=== PATIENT | female | born 1930 | race Asian ===

== ENCOUNTER 2018-10-17 02:33 | Inpatient (IN) | payer MEDICARE, OTHER ==
[~2018-10-17] VITALS: Ht 154.9 cm; Wt 43.6 kg
[2018-10-17] VITALS (7 sets, daily range): BP systolic 107–180; BP diastolic 64–91
--- NOTE | 2018-10-17 02:33 | NUR ---
ED Nurse Note: PT BIBA R26 FROM [facility], PT ON SCENE BS=23, 375mL D50 GIVEN, 2MG NARCAN BY MEDIC ON SCENE. IV ACCESS ESTABLISHED. BLOOD URINE MRSA VRE CRE SWAB COLLECTED; SENT DOWN TO LAB.
--- NOTE | 2018-10-17 02:44 | NUR ---
ED Nurse Note: CALLED [facility] REGARDING PT'S CHART, ACCORDING TO THE CHARGE NURSE, WILL SEND THE MEDICAL RECORDS VIA FAX.
--- NOTE | 2018-10-17 02:46 | Emergency Room Report ---
History of Present Illness General Chief Complaint: Altered Level of Consciousness Source: Medical Record, EMS, Caregiver Present Illness HPI This is an 87-year-old Telugu female coming from [facility] with chief complaint of altered mental status. Per EMS they were called because her blood sugar was low. She has decreased mentation. Blood glucose was 24. She was given an amp of D50. It went up to 130s. She still is confused. Per EMS, this afternoon they went to [facility] for the same complaint. Supposedly glucose improve and and transport was declined. She was placed on a D5 normal saline drip at 20 cc an hour. Unable to get any other history from this patient. No reported fever chills. No reported cough or congestion. At baseline patient is confused. She was living by herself until recently. A week ago she was admitted to [facility] for a fall and confusion. CT was negative. Patient was sent to the [facility] recently. Allergies: Coded Allergies: No Known Allergies (Unverified , 10/17/18) Patient History Past Medical History: see triage record, old chart reviewed, HTN Past Surgical History: other Pertinent Family History: none Social History: Denies: smoking Now: No Immunizations: other Reviewed Nursing Documentation: PMH: Agreed; PSxH: Agreed Nursing Documentation-PMH Past Medical History: No History, Except For Hx Hypertension: Yes Review of Systems All Other Systems: limited - Secondary to condition. Physical Exam Vital Signs Date Time Temp Pulse Resp B/P (MAP) Pulse Ox O2 Delivery O2 Flow Rate FiO2 10/17/18 02:29 98.8 72 12 118/77 (91) 98 Room Air Vitals unremarkable Sp02 EP Interpretation: reviewed, normal General Appearance: Stupor Head: normocephalic, atraumatic Eyes: bilateral eye PERRL, bilateral eye EOMI ENT: hearing grossly normal, normal pharynx Neck: full range of motion, supple, no meningismus Respiratory: chest non-tender, lungs clear, normal breath sounds Cardiovascular #1: regular rate, rhythm, no murmur Gastrointestinal: normal bowel sounds, non tender, no mass, no organomegaly, no bruit, non-distended Musculoskeletal: back normal Neurologic: other - withdraws to painful stimuli Psychiatric: mood/affect normal Medical Decision Making Diagnostic Impression: Primary Impression: Encephalopathy Additional Impressions: Hypoglycemia Altered level of consciousness ER Course Patient with acute encephalopathy is. This may be secondary to dehydration. No evidence of any bleed or CVA on the CT scan. X-ray is unremarkable. Urine negative. Patient more alert after IV fluid. I discussed the case with Dr. Cavazos who will admit. EKG Diagnostic Results Rate: normal Rhythm: NSR ST Segments: no acute changes Rhythm Strip Diag. Results EP Interpretation: yes Rate: 80 Rhythm: NSR, no PVC's, no ectopy Chest X-Ray Diagnostic Results Chest X-Ray Diagnostic Results : Chest X-Ray Ordered: Yes # of Views/Limited/Complete: 1 View Indication: Other EP Interpretation: Yes Interpretation: no consolidation, no effusion, no pneumothorax, no acute cardiopulmonary disease Impression: No acute disease Electronically Signed by: Andrew Ritchie MD CT/MRI/US Diagnostic Results CT/MRI/US Diagnostic Results : Imaging Test Ordered: CT head Impression Per radiologist negative. Last Vital Signs Date Time Temp Pulse Resp B/P (MAP) Pulse Ox O2 Delivery O2 Flow Rate FiO2 10/17/18 02:29 98.8 72 12 118/77 (91) 98 Room Air Status: improved Disposition: ADMITTED INPATIENT Condition: Serious Andrew Ritchie MD Oct 17, 2018 02:46
[2018-10-17] MEDS ORDERED: CLONIDINE0.1 MG PO (03:05)
[2018-10-17] MEDS ORDERED: CLONIDINE0.1 MG GT (03:05)
[2018-10-17] MEDS ORDERED: NORVASC10 MG ORAL (03:05)
[2018-10-17] MEDS ORDERED: MULTIVITAMINS1 EAC8 ORAL (03:05)
[2018-10-17] MEDS ORDERED: MOBIC7.5 MG ORAL (03:05)
[2018-10-17] MEDS ORDERED: BENICAR40 MG ORAL (03:05)
[2018-10-17] MEDS ORDERED: NEURONTIN100 MG ORAL (03:05)
[2018-10-17] MEDS ORDERED: SYNTHROID25 MCG ORAL (03:05)
[2018-10-17] MEDS ORDERED: ACETAMINOPHEN325 M1 ORAL (03:05)
[2018-10-17] MEDS ORDERED: BACLOFEN10 MG ORAL (03:05)
[2018-10-17] MEDS ORDERED: ARICEPT5 MG ORAL (03:05)
[2018-10-17] MEDS ORDERED: DOCUSATE SODIU100 MG ORAL (03:05)
[2018-10-17] MEDS ORDERED: OMEPRAZOLE20 M2 ORAL (03:05)
[2018-10-17] MEDS ORDERED: NITROSTAT0.4 M2 SL (03:05)
[2018-10-17] MEDS ORDERED: MAALOX MAXIMUM355 M1 PO (03:05)
[2018-10-17] MEDS ORDERED: PRO-STAT LIQUID30 ML ORAL (03:05)
--- NOTE | 2018-10-17 03:08 | NUR ---
ED Nurse Note: PT DOWN TO IMAGING
[2018-10-17 03:11] LABS: APPEARANCE,URINE CLEAR; BILIRUBIN, URINE NEGATIVE (NEGATIVE); GLUCOSE, URINE (UA) NEGATIVE (NEGATIVE); KETONES,URINE NEGATIVE (NEGATIVE); LEUKOCYTE ESTERASE ,URINE NEGATIVE (NEGATIVE); NITRITE,URINE NEGATIVE (NEGATIVE); PH,URINE 5 (4.5-8.0); PROTEIN,URINE NEGATIVE (NEGATIVE); UROBILINOGEN,URINE NORMAL MG/DL (0.0-1.0)
[2018-10-17 03:16] LABS: COLOR,URINE PALE YELLOW
[2018-10-17 03:17] LABS: BASOPHILS % (AUTO) 0.5 % (0.0-2.0); EOSINOPHILS % (AUTO) 1.3 % (0.0-3.0); HEMATOCRIT 33.9 % (37.0-47.0); HEMOGLOBIN 11.1 G/DL (12.0-16.0); LYMPHOCYTES % (AUTO) 13.6 % (20.0-45.0); MEAN CORPUSCULAR VOLUME 105 FL (80-99); MONOCYTES % (AUTO) 9.2 % (1.0-10.0); NEUTROPHILS % (AUTO) 75.4 % (45.0-75.0); PLATELET COUNT 440 K/UL (150-450); RED BLOOD COUNT 3.24 M/UL (4.20-5.40); RED CELL DISTRIBUTION WIDTH 11.3 % (11.6-14.8); WHITE BLOOD COUNT 9.8 K/UL (4.8-10.8)
[2018-10-17 03:21] LABS: ANION GAP 7 mmol/L (5-15); BLOOD UREA NITROGEN 37 mg/dL (7-18); CALCIUM 8.3 MG/DL (8.5-10.1); CARBON DIOXIDE 26 MMOL/L (21-32); CHLORIDE 100 MMOL/L (98-107); CREATININE 0.9 MG/DL (0.55-1.30); POTASSIUM 5.3 MMOL/L (3.5-5.1); SODIUM 133 MMOL/L (136-145)
[2018-10-17 03:23] LABS: INR 0.9 (0.9-1.1)
[2018-10-17 03:26] LABS: ALANINE AMINOTRANSFERASE 63 U/L (12-78); ALBUMIN 2.3 G/DL (3.4-5.0); ALBUMIN/GLOBULIN RATIO 0.6 (1.0-2.7); ALKALINE PHOSPHATASE 81 U/L (46-116); ASPARTATE AMINO TRANSFERASE 69 U/L (15-37); BILIRUBIN,TOTAL < 0.1 MG/DL (0.2-1.0)
--- NOTE | 2018-10-17 03:30 | NUR ---
ED Nurse Note: PT BACK FROM CT. UPON REASSESSMENT, REDNESS ON RIGHT UPPER BACK NOTED OTHERWISE SKIN INTACT. WOUND CARE PHOTO TAKEN AND UPLOADED. SON AT BEDSIDE.
--- NOTE | 2018-10-17 03:47 | Diagnostic Imaging Report ---
Indication: Headache Technique: Contiguous 5 mm thick transaxial imaging of the head obtained in a Siemens Sensation [address] scanner. Soft tissue and bone windows generated. Automatic Exposure Control was utilized. Total Dose length Product (DLP): 1344.[address] Dose Index Volume (CTDIvol): 70.38 mGy Comparison: none Findings: There is mild prominence of the ventricles, basal cisterns, and cerebral sulci consistent with atrophy. Mild, nonspecific, white matter hypoattenuation is noted throughout the brain consistent with chronic small vessel disease. There is no midline shift, edema, acute hemorrhage, mass effect, or abnormal extra-axial fluid collections. Bones are unremarkable. Impression: No acute intracranial bleed, mass effect or edema. Mild atrophy of the brain. Nonspecific white matter hypoattenuation probably due to chronic small vessel disease. [facility] has communicated the preliminary results to the Emergency Department. Their findings are largely concordant with this report. The CT scanner at [facility] is accredited by the [employer] and the scans are performed using dose optimization techniques as appropriate to a performed exam including Automatic Exposure control.
[2018-10-17] MEDS ORDERED: D5 1/2NS 1,000 ML IV SCH (04:45)
--- NOTE | 2018-10-17 04:45 | NUR ---
TRANSFER TO FLOOR: Patient transferred to [facility] 208-1 as ordered, per MD ISABEL . Report given to JOSEPH PICKARD. PATIENT IN STABLE CONDITION. ACCOMPANIED BY FAMILY MEMBER. BELONGINGS LIST COMPLETED WITH RECEIVING RN; NO BELONGINGS. ENDORSED REDNESS ON UPPER RIGHT BACK.
--- NOTE | 2018-10-17 04:50 | NUR ---
NURSE NOTES: Received patient from JOSEPH Bryant, patient sleeping, not responsive to name, she doesn't open her eyes but localizes pain. IV sites on L hand 20G and R hand 18G, asymptomatic, intact, patent, F/C draining to gravity, patent, bed low and locked, call light within reach, will continue to monitor and reassess.
--- NOTE | 2018-10-17 07:30 | NUR ---
HAND-OFF: Report given to JOSEPH Urias, patient in stable condition, plan of care endorsed.
[2018-10-17] MEDS ORDERED: D5NS 1,000 ML IV SCH (08:00)
--- NOTE | 2018-10-17 08:00 | NUR ---
NURSE NOTES: Per Dr. Cavazos, D5 NS at 100ml/hr, MRI brain without contrast, Accu check q6h, no further order given at this time. Order noted, entered, carried out. Will continue to monitor.
--- NOTE | 2018-10-17 08:01 | NUR ---
NURSE NOTES: Received report from JOSEPH Gallegos. Patient in bed resting, no active s/s cardiac, respiratory distress noticed at this time. Patient on room air, AOx0-1, snoring. IV on left hand 20G and right hand 18G, asymptomatic, patent, intact. Oshea Catheter draining well to gravity. Bed in lowest position, side rails upx2, call light within reach. Will continue to monitor.
[2018-10-17] MEDS: NovoLOG Insulin Flexpen SUBQ SCH ×3 (11:30→20:42)
[2018-10-17] MEDS ORDERED: Dextrose 10% 1,000 ML IV SCH (11:30)
--- NOTE | 2018-10-17 11:30 | NUR ---
NURSE NOTES: BS checked, critically low x2, lab called for STAT glucose, Dr. Cavazos made aware and D [address] Cavazos give D 50 again, D10 at 100ml/h. Order noted, entered, carried out.
--- NOTE | 2018-10-17 11:31 | NUR ---
NURSE NOTES: BS rechecked after D 50 x2, BS 196. Will continue to monitor.
--- NOTE | 2018-10-17 12:00 | NUR ---
NURSE NOTES: Per Grand-son, on 10/06, patient was able to ambulate and fell , admitted to [facility]. Discharge from [facility] on 10/12 to [facility] rehab. 10/15 from [facility] blood sugar low, decrease LOC, after dextrose, BS and LOC back to baseline, on 10/16 BS and LOC decreased again and admitted to [facility].
--- NOTE | 2018-10-17 12:35 | Diagnostic Imaging Report ---
Indication: Dyspnea Comparison: None A single view chest radiograph was obtained. Findings: No definite infiltrate or pulmonary vascular congestion identified. The heart is normal size. The aorta is mildly enlarged consistent with atherosclerotic vascular disease. The bones are osteopenic. Impression: No acute disease
--- NOTE | 2018-10-17 12:58 | NUR ---
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 Mild atrophy of brain. Nonspecific white matter hypoattenuation. CXR: The aorta is mildly enlarged consistent with atherosclerotic vascular disease. The bones are osteopenic. IS: 2mg Narcan given by EMS NS 1000ml Admitted to Telemetry Telemetry status DCP: Pending Hospital Stay
--- NOTE | 2018-10-17 13:00 | NUR ---
NURSE NOTES: Patient schedule for MRI brain without contrast due to ALOC. Patient went down to MRI, family member at the bedside, was asked if patient has pacemaker or metal related material on body, per family member, denies any metal device on patient. Patient off unit for MRI and was told step down stair to take out denture. When got to MRI, three teeth of artificial teeth, a part of denture , already been dangling and has risk of choking, took it out and placed in a bin. When patient back to room, the family member, sister, stated the teeth are not the denture, not made to remove it. Family member stated will need to take it to the dentist to fix it. A three piece of teeth returned to family member.
[2018-10-17] MEDS: Dextrose 10%/0.9% SOD CHL 1,000 ML IV SCH (13:08)
[2018-10-17] MEDS: Cefepime HCl 1 GM in D5W 55 ML IVPB SCH (13:08)
[2018-10-17 13:16] LABS: HEMATOCRIT 37.5 % (37.0-47.0); MEAN CORPUSCULAR VOLUME 106 FL (80-99); PLATELET COUNT 315 K/UL (150-450); RED BLOOD COUNT 3.54 M/UL (4.20-5.40); RED CELL DISTRIBUTION WIDTH 11.1 % (11.6-14.8); WHITE BLOOD COUNT 11.1 K/UL (4.8-10.8)
--- NOTE | 2018-10-17 13:46 | Diagnostic Imaging Report ---
Indication: Dyspnea Comparison: 10/17/18 at 03: 30 A single view chest radiograph was obtained. Findings: 12:05 Study is limited by rotation. There is no change. Lungs remain clear. IMPRESSION: No change from the earlier film
[2018-10-17 13:53] LABS: ALANINE AMINOTRANSFERASE 49 U/L (12-78); ALBUMIN 2.1 G/DL (3.4-5.0); ALBUMIN/GLOBULIN RATIO 0.5 (1.0-2.7); ALKALINE PHOSPHATASE 73 U/L (46-116); ANION GAP 4 mmol/L (5-15); ASPARTATE AMINO TRANSFERASE 50 U/L (15-37); BILIRUBIN,TOTAL 0.3 MG/DL (0.2-1.0); BLOOD UREA NITROGEN 27 mg/dL (7-18); CALCIUM 8.2 MG/DL (8.5-10.1); CARBON DIOXIDE 28 MMOL/L (21-32); CHLORIDE 102 MMOL/L (98-107); CREATININE 0.8 MG/DL (0.55-1.30); POTASSIUM 5.4 MMOL/L (3.5-5.1); SODIUM 134 MMOL/L (136-145)
[2018-10-17] MEDS ORDERED: Vancomycin 1gm/D5W 275ml IVPB SCH ×2 (16:00)
--- NOTE | 2018-10-17 16:00 | NUR ---
NURSE NOTES: Paged Dr. Cavazos for diet, DVT prophylaxis order. Awaiting for callback.
--- NOTE | 2018-10-17 16:05 | Diagnostic Imaging Report ---
Indication: Altered level of consciousness Technique: The head was imaged in a 1.5 Jeannie magnet. Sequences obtained include sagittal and axial T1 FLAIR, axial T2 fast spin echo with fat saturation, axial T2 FLAIR, diffusion and ADC map. Comparison: None Findings: There is mild prominence of the sulci, ventricles, and basal cisterns consistent with atrophy. Mild, nonspecific T2 hyperintensity noted within white matter. This may be due to chronic small vessel disease. There is no restricted diffusion. Alvarez-white differentiation is normal. There is no mass effect, midline shift, edema, or hemorrhage. There are no abnormal extra-axial or intra-axial fluid collections. The corpus callosum and sella are unremarkable. The brainstem and cerebellum are unremarkable. Bone marrow signal within the visualized osseous structures appears age appropriate and unremarkable otherwise. Impression: No acute intracranial findings. Mild atrophy and evidence of chronic small vessel disease involving white matter tracts.
--- NOTE | 2018-10-17 18:31 | NUR ---
NURSE NOTES: Dr. Cavazos made aware of no DVT, diet order. Per Dr. Cavazos, patient non responsive at this time, no order needed for DVT, try regular pureed if patient tolerated. Dr. Cavazos made aware of most recent glucose 94, K level 5.3. No order given at this time, per Dr. Cavazos patient has IV fluid, no order given at this time.
--- NOTE | 2018-10-17 19:05 | NUR ---
HAND-OFF: Report given to JOSEPH Wood.
--- NOTE | 2018-10-17 19:29 | NUR ---
NURSE NOTES: Pt received from JOSEPH Urias alert and oriented x0, does not reply back but mumbles incoherently in response. IV sites asymptomatic and patent on L hand 20 g and R hand 18g running D10NS at 75 as ordered. Oshea catheter patent and draining to clear and yellow urine. Bed in lowest position, call light and belongings within reach.
[2018-10-18] VITALS: BP 109/54
--- NOTE | 2018-10-18 03:00 | Consultation ---
DATE OF CONSULTATION: 10/17/2018 CARDIOLOGY CONSULTATION CONSULTING PHYSICIAN: Roque Cavazos M.D. REQUESTING PHYSICIAN: Marc Rosas M.D. REASON FOR CONSULTATION: Hypotension and hypoglycemia with altered mentation. HISTORY OF PRESENT ILLNESS: This is an 87-year-old Luxembourgish female. She resides at a long term facility. She was recently admitted there after a short stay at [facility]. She apparently had a fall at home about 10 days ago. She was transferred to [facility]. There, workup was undertaken, no definitive etiology for the fall was ascertained and the patient apparently did not have any fractures requiring any surgical intervention. Early this evening, she became withdrawn, lethargic, and relatively hypotensive with severe hypoglycemia. She also had been eating poorly and has been increasingly withdrawn and lethargic late the prior evening. The patient was referred to the emergency room where she was severely hypoglycemic with a blood glucose of 24. When the patient was confused at baseline, her family members report she is usually alert and conversive appropriately and prior to her fall was ambulatory and lives at home. In the emergency room, a workup was undertaken that included a CAT scan of the brain revealing no acute pathology. PAST MEDICAL HISTORY: Hypotension, cardiovascular disease, cerebrovascular disease with dementia, degenerative disk disease, and osteoarthritis. ALLERGIES: None. MEDICATIONS: Reviewed and reconciled. SOCIAL HISTORY: Negative for smoking, alcohol, or substance abuse. FAMILY HISTORY: Noncontributory. REVIEW OF SYSTEMS: Unobtainable from the patient however review of records and discussion with family members revealed pertinent data that has been outlined above. Otherwise all systems are negative. PHYSICAL EXAMINATION: GENERAL: Withdrawn, lethargic. VITAL SIGNS: Blood pressure 118/77 earlier, now 180/91, heart rate in the 80s, respiratory rate 18, and she is afebrile. HEENT: Temporal wasting. Dry mucous membranes. LUNGS: Clear. CARDIAC: Regular. Normal S1, S2 with no murmur. ABDOMEN: Soft. EXTREMITIES: No edema. LABORATORY AND DIAGNOSTIC DATA: Sodium 133, potassium 5.3, bicarbonate 26, BUN 37, creatinine 0.9. Glucose has been ranging from to 29. Lactic acid normal. Troponin negative. Albumin 3.3. White count 9.8 and hemoglobin 11.1. Urinalysis had 0 to 2 red cells and no white cells. Chest x-ray with no acute process. MRI of the brain today revealed no acute findings and atrophy with diffuse white matter disease. IMPRESSION: 1. Hypoglycemia with mild hypovolemia and dehydration. 2. Hypotension with labile blood pressure due to metabolic derangement. 3. Metabolic encephalopathy. 4. Possible sepsis although presently no definitive source is known. PLAN: 1. Volume support with D10. 2. Panculture and empiric antimicrobials. 3. DVT and stress ulcer prophylaxis. 4. Metabolic profile. 5. Cardiac monitoring. Roque Cavazos M.D. DR: SUZY JOB#: [id number] CC:
[2018-10-18] MEDS: Dextrose 10%/0.9% SOD CHL 1,000 ML IV SCH ×2 (03:12→17:16)
[2018-10-18 04:00] VITALS: BP 105/57
[2018-10-18] MEDS: NovoLOG Insulin Flexpen SUBQ SCH ×4 (06:30→21:00)
--- NOTE | 2018-10-18 07:26 | NUR ---
NURSE NOTES: Received report from Israel RUIZ. Pt in bed awake and confused, unable to make needs known and eye open spontaneously. On room air and no signs of distress noted. IV site in Left hand 20G running with D10 NS @75ml/hr and Right hand 18G SL intact and asymptomatic. Bed in lowest position and locked. Bilateral side rails up for safety. No c/o pain noted. Will continue to plan of care.
--- NOTE | 2018-10-18 07:27 | NUR ---
HAND-OFF: Report given to JOSEPH Mathew. No acute s/s of distress noted. Plan of care endorsed.
[2018-10-18 07:30] LABS: BASOPHILS % (AUTO) 0.9 % (0.0-2.0); EOSINOPHILS % (AUTO) 1.9 % (0.0-3.0); HEMOGLOBIN 10.7 G/DL (12.0-16.0); LYMPHOCYTES % (AUTO) 17.6 % (20.0-45.0); MEAN CORPUSCULAR VOLUME 107 FL (80-99); MONOCYTES % (AUTO) 9.8 % (1.0-10.0); NEUTROPHILS % (AUTO) 69.7 % (45.0-75.0); PLATELET COUNT 448 K/UL (150-450); WHITE BLOOD COUNT 7.5 K/UL (4.8-10.8)
[2018-10-18 07:43] LABS: ALANINE AMINOTRANSFERASE 38 U/L (12-78); ALBUMIN 1.9 G/DL (3.4-5.0); ALBUMIN/GLOBULIN RATIO 0.5 (1.0-2.7); ALKALINE PHOSPHATASE 65 U/L (46-116); ANION GAP 5 mmol/L (5-15); ASPARTATE AMINO TRANSFERASE 35 U/L (15-37); BILIRUBIN,TOTAL 0.2 MG/DL (0.2-1.0); BLOOD UREA NITROGEN 15 mg/dL (7-18); CALCIUM 8.5 MG/DL (8.5-10.1); CARBON DIOXIDE 28 MMOL/L (21-32); CHLORIDE 106 MMOL/L (98-107); CREATININE 0.7 MG/DL (0.55-1.30); POTASSIUM 4.4 MMOL/L (3.5-5.1); SODIUM 139 MMOL/L (136-145)
[2018-10-18 08:00] VITALS: BP 109/56
[2018-10-18] MEDS: Cefepime HCl 1 GM in D5W 55 ML IVPB SCH (12:37)
--- NOTE | 2018-10-18 15:24 | NUR ---
SWALLOW / SPEECH THERAPY NOTE: SWALLOW CONSULT: SWALLOW SCREEN AND CHART REVIEW, WILL ASSESS FULLY TOMORROW. PER RN, MIN, NO OVERT S/S OF ASPIRATION WITH THIN LIQUIDS AND PUREED (CRUSHED MEDS WITH APPLESAUCE) BUT HAS SILENT ASP RISK DUE TO NEW HEAD TRAUMA FROM FALL (MORE CONFUSED PER RN) AND H/O DEMENTIA. [facility]PED VERSUS PUREED ALSO NOTED AND THIN LIQUIDS. NOW ON PUREED AND THIN LIQUIDS AND HAS POOR INTAKE. PLAN: CONTINUE WITH PUREED BUT DOWNGRADE TO NECTAR THICK LIQUIDS FOR NOW UNTIL SWALLOW EVAL AND/OR MOD BARIUM SWALLOW STUDY TOMORROW 1 TO 1 FEEDER AND USE GENERAL ASP PRECAUTIONS. CALORIE COUNT AND DIET TYPE PER RD SEND ENSURE ENLIVE OR PER RD IF POOR INTAKE D/W RN AND PATIENT'S GRANDDAUGHTER, RASHMI
[2018-10-18 16:00] VITALS: BP 131/74
[2018-10-18] MEDS: Vancomycin 750mg/NS 275ml IVPB SCH ×2 (17:16)
--- NOTE | 2018-10-18 19:30 | NUR ---
HAND-OFF: Report given to Agustín RUIZ. Pt remains stable.
--- NOTE | 2018-10-18 19:31 | NUR ---
NURSE NOTES: Got report from Min RN. Pt in stable condition. Denies any pain. No s/s of distress or discomfort noted. Pt resting in bed comfortably. Bed in low and locked position, call light within reach, bedside table within reach. Continue to monitor.
[2018-10-18 20:00] VITALS: BP 141/84
[2018-10-18] MEDS: Heparin 5000 units/ml inj SUBQ SCH (20:49)
--- NOTE | 2018-10-18 22:00 | History and Physical Report ---
DATE OF ADMISSION: 10/17/2018 CHIEF COMPLAINT: Hypoglycemia, altered mental status. HISTORY OF PRESENT ILLNESS: The patient is an 87-year-old female. She currently resides at a long term facility. She was transferred from the long term facility with complaints of hypoglycemia and altered mental status. On evaluation in the emergency room, the patient was noted to be confused and hypoglycemic. She was started on IV hydration. Family is currently at the bedside. They are unaware of any prior history of diabetes. They are unaware of any prior history of hypoglycemic episodes. Currently, the patient is awake and most recent blood sugars have been stable. Family members feel that the patient is close to her baseline. There are no reports of any nausea or vomiting. No diarrhea. PAST MEDICAL HISTORY: Significant for history of hypotension, history of falls, history of osteoarthritis, and dementia. PAST SURGICAL HISTORY: Unknown. CURRENT MEDICATIONS: Reconciled and reviewed. ALLERGIES: None. FAMILY HISTORY: None. SOCIAL HISTORY: There is no known history of tobacco, ethanol, or drugs. REVIEW OF SYSTEMS: GENERAL: No fever or chills. HEENT: No headaches. CARDIOPULMONARY: No chest pain or shortness of breath. GASTROINTESTINAL: No nausea or vomiting. GENITOURINARY: No urgency or frequency. MUSCULOSKELETAL: No joint pain or swelling. NEUROLOGIC: No evidence of seizures. PHYSICAL EXAMINATION: VITAL SIGNS: Temperature 97.3, pulse 77, respirations 20, and blood pressure 109/56. GENERAL: The patient is well developed, no apparent distress. She is awake and alert, but somewhat withdrawn. NECK: Supple. HEART: Regular rate and rhythm. LUNGS: Clear. ABDOMEN: Soft, nontender, and nondistended. EXTREMITIES: Without clubbing, cyanosis, or edema. LABORATORY DATA: White count 9, hemoglobin 11, hematocrit 33, platelets of 440. Sodium 134, potassium 5.4, glucose 29, vitamin B12 of 108. Cortisol was 11. ASSESSMENT: This is a 87-year-old female with a history of atherosclerotic cardiovascular disease, dementia, admitted with complaints of hypoglycemia and hypotension of unclear etiology. PLAN: 1. IV hydration. 2. Follow up cultures. 3. Empiric antibiotic therapy for sepsis. 4. Plan of care was discussed with the patient's family at the bedside. Marc Rosas M.D. DR: VALERIA JOB#: [id number] CC:
[2018-10-19] VITALS: BP 115/67
[2018-10-19 04:00] VITALS: BP 127/84
[2018-10-19] MEDS: Dextrose 10%/0.9% SOD CHL 1,000 ML IV SCH ×2 (05:30→15:12)
[2018-10-19] MEDS: NovoLOG Insulin Flexpen SUBQ SCH ×4 (06:22→21:00)
--- NOTE | 2018-10-19 07:30 | NUR ---
HAND-OFF: Report given to Jerilyn RUIZ. Endorsed plan of care.
[2018-10-19 08:00] VITALS: BP 115/67
--- NOTE | 2018-10-19 08:03 | NUR ---
NURSE NOTES: Received patient from Doreen Dela Cruz. Patient sleeping in bed, arousable to touch. No s/s of pain or discomfort. All safety precautions in place. Patient to start calorie today. Will follow.
[2018-10-19] MEDS: Heparin 5000 units/ml inj SUBQ SCH ×2 (09:15→21:44)
--- NOTE | 2018-10-19 10:30 | NUR ---
SWALLOW/SPEECH THERAPY NOTE: REFERRED BY DR DIAZ FOR A SWALLOWING EVALUATION, SEE FULL REPORT TO FOLLOW. DYSPHAGIA RISK FACTORS FOR THIS 87 Y.O. [place]SPE[place] FEMALE: ACUTE ISSUES: ACUTE HEAD TRAUMA / CONTUSION POST FALL AMS, LESS ALERT, CONFUSED, AND HAS SPEECH CHANGES PER FAMILY (NOT TALKING IN SENTENCES NOW), SLOW/POOR INTAKE (? WHEN SHE LAST ATE). LUNGS CLEAR NOW BUT COUGHS WITH ORAL SECRETIONS, NEEDED SUCTION. HYPOGLYCEMIC (NO ISSUES WITH DIABETES BEFORE) H/O DEMENTIA ON ARICEPT PER FAMILY HAD MEMORY PROBLEMS BUT SPOKE IN SENTENCES IN [place], ON DYSPHAGIA DIET AT [facility], CARDIAC, HTN, GERD MEDS. PER FAMILY, PT FELL AND WENT TO ANOTHER HOSPITAL (DID NOT HIT HEAD THEN) AND THEN WENT TO [facility]. NO POLST NOR AD REGARDING TUBE FEEDINGS BUT FAMILY OK WITH TEMPORARY NGT FOR NOW IF NEEDS. [facility] AND THIN LIQU[facility] BUT DOWNGRADED TO PUREED AND THIN LIQUIDS ON 10/16/18. CURRENTLY ON PUREED AND NECTAR THICK LIQUIDS (DOWNGRADED BY BROADBAND INSTALLER FROM THIN UNTIL SWALLOW EVAL) WITH VARIABLY POOR BUT CONSISTENTLY SLOW INTAKE AND HAS PERIODS OF REDUCED ALERTNESS. PER RN PT VERY SLOW IN INTAKE AND STARTS TO FALL ASLEEP.PER RD OK TO LIBERALIZE DIET TO REGULAR NOW. PATIENT NOT CONSISTENTLY ALERT, HAD DENTITION MISSING AND IN POOR CONDITION. NOT VERBALIZING. INITIAL IMPRESSIONS: S/S OF A SIGNIFICANT OROPHARYNGEAL DYSPHAGIA WITH INCREASED TRANSIT TIMES S/S OF ASPIRATION ON SALIVA, PT COUGHING AND VOICE SOUNDS WET, CANNOT COUGH OUT AND MAY HAVE SWALLOWED SINCE RN NOT ABLE TO SUCTION FAST ENOUGH. GIVEN TSP OF NECTAR THICK LIQUID WATER, SLOW TRANSIT 3-4 SECONDS, WEAK HYOLARYNGEAL EXCURSION DURING SWALLOW, AND WEAK COUGH AFTER THE SWALLOW, 2ND DELAYED AND WEAK SWALLOW LATER. HIGH RISK FOR SILENT ASPIRATION GIVEN DEMENTIA AND HEAD TRAUMA DIAGNOSES SLOW AND VARIABLY POOR INTAKE RECOMMENDATIONS: CONSIDER TEMPORARY USE OF NGT 12 MAURITIAN FOR NOW UNTIL PT MORE CONSISTENTLY ALERT AND AFTER COMPLETION OF MODIFIED BARIUM SWALLOW STUDY TO FURTHER ASSESS SWALLOW, DETERMINE SILENT ASPIRATION RISK/ETIOLOGY, AND TO ATTEMPT TRIAL TX TECHNIQUES. SKILLED DYSPHAGIA MANAGEMENT AND TX AND COG-COM EVAL/TX REGARDING SPEECH/LANGUAGE AND COGNITIVE CHANGES (DEMENTIA NOW MILD TBI FROM FALL) EDUCATED/TRAINED RN BUD IN POSTED ASPIRATION AND REFLUX PRECAUTIONS. LEFT MESSAGE WITH DR DIAZ FAMILY RECEPTIVE TO NGT FOR NOW Addendum: 10/19/18 at 1033 by PHU HALLMAN BROADBAND INSTALLER PER RD OK TO LIBERALIZE DIET TO REGULAR NOW AND PT IS UNDERWEIGHT. RD TO PUT IN FORMULA FOR TUBE FEEDINGS. Addendum: 10/19/18 at 1039 by PHU HALLMAN BROADBAND INSTALLER CONSIDER KEEP NPO AND INITIATE TEMPORARY USE OF NGT 12 MAURITIAN FOR NOW UNTIL PT MORE CONSISTENTLY ALERT AND AFTER COMPLETION OF MODIFIED BARIUM SWALLOW STUDY TO FURTHER ASSESS SWALLOW, DETERMINE SILENT ASPIRATION RISK/ETIOLOGY, AND TO ATTEMPT TRIAL TX TECHNIQUES.
--- NOTE | 2018-10-19 11:50 | NUR ---
RD ASSESSMENT & RECOMMENDATIONS SEE CARE ACTIVITY FOR COMPLETE ASSESSMENT DAILY ESTIMATED NEEDS: Needs based on Underweight/ 41kg 30-35 kcals/kg 2854-4215 total kcals 1-1.5 g protein/kg 41-62 g total protein 25-30 mL/kg 6309-6819 total fluid mLs NUTRITION DIAGNOSIS: * Swallowing difficulty R/T dysphgia as evidenced by pt on pureed moist, NTL, CIVIL DESIGN SPECIALIST recommends temporary nonroal feedings at this time. * Increased kcal/prot needs R/T underweight status as evidenced by pt is 90% IBW with BMI of 17.6. * Altered nutrition related lab values R/T diabetes as evidenced by episodes of hypo and hyperglycemia. CURRENT DIET:REGULAR, pureed moist, NTL PO DIET RECOMMENDATIONS: IF SAFE FOR PO -> liberalized REGULAR/ texture per CIVIL DESIGN SPECIALIST + Glucerna TID ENTERAL NUTRITION RECOMMENDATIONS: Glucerna 1.2 @ 50ml/hr x 24 hrs to provide 1200ml, 1440kcal, 72g prot, 966ml free water * If NGT feeding a part of POC and indicated, obtain GI access * Initiate Glucerna 1.2 @ 20ml/hr x 6 hrs, advance 10ml q 4-6 hrs as tolerated to goal rate. * HOB over 30 degrees/ water flush per MD ADDITIONAL RECOMMENDATIONS: * TXR PT TO BED WITH BEDSCALE, OBTAIN CALIBRATED BEDSCALE WT (currently on a bed without bedscale) * Monitor lytes daily w/ TF, replete as needed * Monitor BGs closely- hypoglycemic and hyperglycemic episodes * Monitor POC : NGT feeding vs oral diet * F/up with Jona Count x 72 hrs if pt remains on oral diet * Rec wound eval: coccyx wound photo
[2018-10-19 12:00] VITALS: BP 115/67
[2018-10-19] MEDS: Cefepime HCl 1 GM in D5W 55 ML IVPB SCH (12:14)
--- NOTE | 2018-10-19 14:30 | NUR ---
NURSE NOTES: Received order from Dr. Rosas to insert NGT. Carried out awaiting KUB to be done will follow.
--- NOTE | 2018-10-19 14:31 | General Progress Note ---
Assessment/Plan Problem List: (1) Altered level of consciousness ICD Codes: R40.4 - Transient alteration of awareness SNOMED: 4819103 (2) Hypoglycemia ICD Codes: E16.2 - Hypoglycemia, unspecified SNOMED: 717473790 (3) Encephalopathy ICD Codes: G93.40 - Encephalopathy, unspecified SNOMED: 59673792 Status: stable, not improved Assessment/Plan: cont ivf monitor bs follow up cultures abx eeg d/w family- ok with ngt. GI eval Subjective ROS Limited/Unobtainable: Yes Constitutional: Reports: malaise, weakness HEENT: Reports: no symptoms Cardiovascular: Reports: no symptoms Respiratory: Reports: no symptoms Gastrointestinal/Abdominal: Reports: difficulty swallowing Genitourinary: Reports: no symptoms Neurologic/Psychiatric: Reports: pre-existing deficit Endocrine: Reports: no symptoms Hematologic/Lymphatic: Reports: no symptoms Allergies: Coded Allergies: No Known Allergies (Unverified , 10/17/18) All Systems: reviewed and negative except above Subjective no change. remains poorly responsive and lethargic. failed swallow eval. having difficulty with oral secretions. ct and mri of brain only with chronic dz. BS stable on d10 Objective Last 24 Hour Vital Signs Date Time Temp Pulse Resp B/P (MAP) Pulse Ox O2 Delivery O2 Flow Rate FiO2 10/19/18 12:00 77 10/19/18 12:00 98.2 85 20 115/67 (83) 98 10/19/18 09:00 Room Air 10/19/18 08:00 73 10/19/18 08:00 98.0 75 22 115/67 (83) 97 10/19/18 04:00 77 10/19/18 04:00 98.9 87 16 127/84 (98) 97 10/19/18 00:00 88 10/19/18 00:00 98.3 83 16 115/67 (83) 98 10/18/18 21:00 Room Air 10/18/18 20:00 97.8 100 16 141/84 (103) 99 10/18/18 20:00 96 10/18/18 16:00 98.1 82 20 131/74 (93) 92 10/18/18 16:00 83 Intake and Output 10/18/18 10/19/18 19:00 07:00 Intake Total 120 ml Output Total 500 ml 1300 ml Balance -380 ml -1300 ml Intake Oral 120 ml Output Urine Total 500 ml 1300 ml # Bowel Movements 1 1 Height (Feet): 5 Height (Inches): 1.00 Weight (Pounds): 114 General Appearance: WD/WN, lethargic, confused Neck: supple Cardiovascular: normal rate Respiratory/Chest: chest wall non-tender, lungs clear, normal breath sounds, no respiratory distress, no accessory muscle use Abdomen: normal bowel sounds, non tender, soft, no organomegaly, no mass Edema: no edema noted Arm (L), no edema noted Arm (R), no edema noted Leg (L), no edema noted Leg (R), no edema noted Pedal (L), no edema noted Pedal (R), no edema noted Generalized Neurologic: disoriented, aphasia Marc Rosas MD Oct 19, 2018 14:31
[2018-10-19 16:00] VITALS: BP 135/93
[2018-10-19] MEDS: Vancomycin 750mg/NS 275ml IVPB SCH ×2 (16:46)
--- NOTE | 2018-10-19 17:00 | NUR ---
NURSE NOTES: Summoned to patients room by laboratory technology teacher. Patients NGT out found at patients bed. Family at bedside. Patient agitated towards staff. Dr. Cavazos made aware and order obtained for B/L wrist restraints. Applied following protocol. NGT reinserted. KUB done. awaiting result. will follow.
--- NOTE | 2018-10-19 18:24 | Diagnostic Imaging Report ---
Indication: Post nasogastric tube placement Technique: Supine view of the abdomen Comparison: none Findings: There is a nasogastric tube in good position, tip projected at the level of the gastric body. Bowel gas pattern appears unremarkable. There are degenerative changes of the lumbar spine. Impression: Satisfactory position of nasogastric tube This agrees with the preliminary interpretation provided overnight by [facility] teleradiology service.
[2018-10-19 20:00] VITALS: BP 126/78
--- NOTE | 2018-10-19 20:00 | NUR ---
NURSE NOTES: Pt received from JOSEPH Jean-Baptiste alert and oriented x0 does not answer back when attempted to be oriented but opens eyes simultaneously. IV site found off pt, d/romana and on the floor. NGT found out of pt, on bed. No acute s/s of distress noted. Oshea catheter patent and draining to clear and yellow urine. Pt on bilateral soft wrist restraints, neurovascular status intact, no s/s of swelling or redness. Skin warm to touch, cap refill less than 3 secs. Bed in lowest position, call light and belongings within reach.
--- NOTE | 2018-10-19 20:03 | NUR ---
NURSE NOTES: Informed Dr. Rosas about NGT pulled out. Per Dr. Rosas, pls reinsert NGT and follow up with abd XR to confirm placement. Will carry out orders.
--- NOTE | 2018-10-19 20:11 | NUR ---
NURSE NOTES: JHONATANB resulted. Dr. Rosas made aware. New orders obtained. Will follow.
--- NOTE | 2018-10-19 20:13 | NUR ---
HAND-OFF: Report given to Doreen Wood.PLan of endoresed. Will follow
--- NOTE | 2018-10-19 23:00 | Progress Note ---
DATE: 10/19/2018 SUBJECTIVE: The patient remains withdrawn and lethargic. A single blood culture is positive for Staph aureus, coag-negative. The patient continues to be on high-dose dextrose replacement due to hypoglycemia. OBJECTIVE: VITAL SIGNS: Blood pressure 109/56, pulse 77, and respirations 20. Afebrile. LUNGS: Clear. CARDIAC: Regular. Normal S1, S2. ABDOMEN: Soft. EXTREMITIES: No edema. LABORATORY DATA: White count 7.5 and hemoglobin 10.7. Potassium 4.4, BUN 15, creatinine 0.7. Albumin 1.9. An a.m. cortisol was 11.2. IMPRESSION: 1. Hypoglycemia. 2. Possible sepsis. 3. Severe protein-calorie malnutrition. 4. No signs of adrenal insufficiency. 5. Hypovolemia and dehydration, recovering. 6. Acute on chronic kidney injury, resolving. 7. Cerebrovascular disease with dementia. 8. Metabolic encephalopathy. PLAN: 1. Adjust IV fluids. 2. Empiric antimicrobials. 3. Aspiration precautions. Roque Cavazos M.D. DR: VINAY JOB#: [id number] CC:
--- NOTE | 2018-10-19 23:15 | Progress Note ---
DATE: 10/19/2018 CARDIOLOGY PROGRESS NOTE SUBJECTIVE: The patient remains poorly responsive and lethargic. She failed the swallow evaluation and has difficulty with oral secretions. Her CAT scan and MRI of the brain revealed chronic disease. Blood sugars remained stable on D10. OBJECTIVE: VITAL SIGNS: Blood pressure 131/74, pulse 83, and respirations 20, and afebrile. LUNGS: Clear. CARDIAC: Regular. Normal S1, S2. ABDOMEN: Soft. EXTREMITIES: No edema. No new laboratories. IMPRESSION: 1. Metabolic and toxic encephalopathy. 2. Hypoglycemia. 3. Dysphagia. 4. Severe protein-calorie malnutrition. 5. Cerebrovascular disease with dementia. 6. Rehydrated. 7. Acute renal failure, resolved. 8. Positive blood culture likely a contaminant. PLAN: 1. Continue dextrose hydration. 2. Monitor glucose parameters. 3. Empiric antimicrobials. 4. NG-tube for interim nutrition. 5. She will likely need long-term G-tube. Roque Cavazos M.D. DR: VINAY JOB#: [id number] CC:
[2018-10-20] VITALS: BP 134/78
--- NOTE | 2018-10-20 01:10 | NUR ---
NURSE NOTES: RN inserted 16F NGT through L nares at 55cm. Ordered KUB per Dr. Rosas for confirmation.
--- NOTE | 2018-10-20 02:32 | Diagnostic Imaging Report ---
Indication: Post is gastric tube placement Technique: Supine view of the upper abdomen Comparison: 10/19/2018 Findings: Stable position of nasogastric tube, tip projected at level gastric body, proximal port is not clearly visualized but presumably well below the gastroesophageal junction. Bowel gas pattern remains unremarkable. Impression: Unchanged, over one day, findings as above.
--- NOTE | 2018-10-20 03:45 | NUR ---
NURSE NOTES: Per KUB, NGT distal tip in stomach but recommends advancing NGT 3-5 cm. NGT advanced 5 cm from 55 to 60 cm in L nares.
[2018-10-20 04:00] VITALS: BP 116/60
[2018-10-20] MEDS: Dextrose 10%/0.9% SOD CHL 1,000 ML IV SCH (06:03)
[2018-10-20] MEDS: NovoLOG Insulin Flexpen SUBQ SCH ×3 (06:03→17:13)
[2018-10-20 07:25] LABS: AMMONIA < 10 umol/L (11-32)
[2018-10-20 07:27] LABS: BASOPHILS % (AUTO) 0.9 % (0.0-2.0); EOSINOPHILS % (AUTO) 1.6 % (0.0-3.0); HEMATOCRIT 34.2 % (37.0-47.0); HEMOGLOBIN 11.3 G/DL (12.0-16.0); LYMPHOCYTES % (AUTO) 22.3 % (20.0-45.0); MEAN CORPUSCULAR VOLUME 104 FL (80-99); MONOCYTES % (AUTO) 9.1 % (1.0-10.0); NEUTROPHILS % (AUTO) 66.2 % (45.0-75.0); PLATELET COUNT 513 K/UL (150-450); RED BLOOD COUNT 3.28 M/UL (4.20-5.40); RED CELL DISTRIBUTION WIDTH 10.4 % (11.6-14.8); WHITE BLOOD COUNT 9.2 K/UL (4.8-10.8)
[2018-10-20 07:32] LABS: ALANINE AMINOTRANSFERASE 37 U/L (12-78); ALBUMIN 2.3 G/DL (3.4-5.0); ALBUMIN/GLOBULIN RATIO 0.5 (1.0-2.7); ALKALINE PHOSPHATASE 69 U/L (46-116); ANION GAP 6 mmol/L (5-15); ASPARTATE AMINO TRANSFERASE 27 U/L (15-37); BILIRUBIN,TOTAL 0.5 MG/DL (0.2-1.0); BLOOD UREA NITROGEN 10 mg/dL (7-18); CALCIUM 8.8 MG/DL (8.5-10.1); CARBON DIOXIDE 31 MMOL/L (21-32); CHLORIDE 104 MMOL/L (98-107); CREATININE 0.7 MG/DL (0.55-1.30); POTASSIUM 3.4 MMOL/L (3.5-5.1); SODIUM 141 MMOL/L (136-145)
--- NOTE | 2018-10-20 07:51 | NUR ---
NURSE NOTES: Received report from Israel RUIZ. AOX0 and fatigue in bed and responsive to tactile stimuli. On bilateral soft wrist restraints intact and able to put the two fingers between restraints. No changes of color noted. IV site in RFA 20G running with D10NS @75ml/hr intact and asymptomatic. Bed in its lowest position an locked. Bed side rails upx2 for safety. Oshea cath 16fr patent and intact and noted yellow color urine in drainage line. On room air and no signs of distress or SOB noted. Will continue to plan of care.
--- NOTE | 2018-10-20 07:51 | NUR ---
HAND-OFF: Report given to JOSEPH Mathew. No acute s/s of distress noted. Plan of care endorsed.
[2018-10-20 08:00] VITALS: BP 117/77
[2018-10-20] MEDS: Heparin 5000 units/ml inj SUBQ SCH ×2 (08:53→21:24)
--- NOTE | 2018-10-20 09:51 | General Progress Note ---
Assessment/Plan Status: stable, not improved Assessment/Plan: Assessment - Dementia - hypoglycemia - Delirium - Failed swallow study Recommendations - continue NGT feeds - Elevate HOB - Discussed with family - decision on PEG pending Thank you Edmond Vargas MD Subjective Allergies: Coded Allergies: No Known Allergies (Unverified , 10/17/18) Objective Last 24 Hour Vital Signs Date Time Temp Pulse Resp B/P (MAP) Pulse Ox O2 Delivery O2 Flow Rate FiO2 10/20/18 08:00 97.3 74 18 117/77 (90) 94 10/20/18 04:00 97.9 78 16 116/60 (78) 96 10/20/18 04:00 70 10/20/18 00:00 78 10/20/18 00:00 98.2 73 16 134/78 (96) 98 10/19/18 21:00 Room Air 10/19/18 20:00 98.0 84 20 126/78 (94) 97 10/19/18 20:00 101 10/19/18 16:00 98.1 87 20 135/93 (107) 100 10/19/18 16:00 91 10/19/18 12:00 77 10/19/18 12:00 98.2 85 20 115/67 (83) 98 Intake and Output 10/19/18 10/20/18 19:00 07:00 Intake Total 375 ml Output Total 700 ml 900 ml Balance -700 ml -525 ml IV Total 375 ml Output Urine Total 700 ml 900 ml # Bowel Movements 1 1 Laboratory Tests 10/20/18 05:30: White Blood Count 9.2, Red Blood Count 3.28L, Hemoglobin 11.3L, Hematocrit 34.2L , Mean Corpuscular Volume 104H, Mean Corpuscular Hemoglobin 34.4H, Mean Corpuscular Hemoglobin Concent 33.1, Red Cell Distribution Width 10.4L, Platelet Count 513H, Mean Platelet Volume 4.4L, Neutrophils (%) (Auto) 66.2, Lymphocytes (%) (Auto) 22.3, Monocytes (%) (Auto) 9.1, Eosinophils (%) (Auto) 1.6, Basophils (%) (Auto) 0.9, Sodium Level 141, Potassium Level 3.4L, Chloride Level 104, Carbon Dioxide Level 31, Anion Gap 6, Blood Urea Nitrogen 10, Creatinine 0.7, Estimat Glomerular Filtration Rate , Glucose Level 117H, Calcium Level 8.8, Total Bilirubin 0.5, Aspartate Amino Transf (AST/SGOT) 27, Alanine Aminotransferase (ALT/SGPT) 37, Alkaline Phosphatase 69, Ammonia < 10L, Total Protein 6.5, Albumin 2.3L, Globulin 4.2, Albumin/Globulin Ratio 0.5L Height (Feet): 5 Height (Inches): 1.00 Weight (Pounds): 114 Edmond Vargas MD Oct 20, 2018 09:51
--- NOTE | 2018-10-20 11:07 | NUR ---
ST NOTES: SWALLOW STATUS: PATIENT NOT ALERT FOR PO TRIAL NOR MODIFIED BARIUM SWALLOW STUDY. NGT IN PLACE ([address] RD RECOMMENDED GLUCERNA FEEDINGS. PER RN, PT NOT VERBALIZING IN [place]. STILL RECOVERING FROM HER MILD TBI. SPOKE WITH [id number] AND SON ABOUT NEED FOR NGT NOW AND MOD BARIUM SWALLOW STUDY WHEN READY. D/W DR PERALES REGARDING POSSIBLE NEED FOR LONGER TERM NONORAL FEEDINGS. HE SPOKE WITH FAMILY WHO WILL DISCUSS AGAIN ON WEDNESDAY. PATIENT MAY BE ABLE TO HAVE SOME ORAL GRAT AFTER COMPLETE OF SWALLOW STUDY IP OR OP IF D/C. DO NOT HOLD UP D/C FOR THIS PROCEDURE. GOALS MET FOR STAFF (MIN RN) EDUCATED/TRAINED IN ORAL CARE AND ASP PREC WITH NGT FEEDINGS. PLAN: CONTINUE WITH PLAN OF CARE IN SWALLOW EVAL REPORT.
[2018-10-20 12:00] VITALS: BP 114/69
[2018-10-20] MEDS: Cefepime HCl 1 GM in D5W 55 ML IVPB SCH (12:23)
[2018-10-20 16:00] VITALS: BP 135/66
--- NOTE | 2018-10-20 16:00 | NUR ---
NURSE NOTES: Noted IV line in RFA 20G with able to flush well but pt c/o pain when touched and noted right upper arm swelling. Elevated right arm with pillows and Iced pack applied after IV 20g in RFA removed. Will continue to monitor the swelling in right upper arm.
--- NOTE | 2018-10-20 16:26 | General Progress Note ---
Assessment/Plan Problem List: (1) Altered level of consciousness ICD Codes: R40.4 - Transient alteration of awareness SNOMED: 0554455 (2) Hypoglycemia ICD Codes: E16.2 - Hypoglycemia, unspecified SNOMED: 577988505 (3) Encephalopathy ICD Codes: G93.40 - Encephalopathy, unspecified SNOMED: 76063847 Status: stable, not improved Assessment/Plan: dc ivf ngt feeds monitor bs follow up cultures abx eeg d/w family- ok with ngt. gi eval appreciated may need gt if swallowing does not improve Subjective ROS Limited/Unobtainable: Yes Constitutional: Reports: malaise, weakness HEENT: Reports: no symptoms Cardiovascular: Reports: no symptoms Respiratory: Reports: cough Gastrointestinal/Abdominal: Reports: difficulty swallowing Genitourinary: Reports: no symptoms Neurologic/Psychiatric: Reports: pre-existing deficit Endocrine: Reports: no symptoms Hematologic/Lymphatic: Reports: anemia Allergies: Coded Allergies: No Known Allergies (Unverified , 10/17/18) All Systems: reviewed and negative except above Subjective ngt placed. failed swallow eval. remains withdrawn and confused. Objective Last 24 Hour Vital Signs Date Time Temp Pulse Resp B/P (MAP) Pulse Ox O2 Delivery O2 Flow Rate FiO2 10/20/18 12:00 97.9 82 18 114/69 (84) 97 10/20/18 12:00 83 10/20/18 09:00 Room Air 10/20/18 08:00 68 10/20/18 08:00 97.3 74 18 117/77 (90) 94 10/20/18 04:00 97.9 78 16 116/60 (78) 96 10/20/18 04:00 70 10/20/18 00:00 78 10/20/18 00:00 98.2 73 16 134/78 (96) 98 10/19/18 21:00 Room Air 10/19/18 20:00 98.0 84 20 126/78 (94) 97 10/19/18 20:00 101 Intake and Output 10/19/18 10/20/18 19:00 07:00 Intake Total 470 ml Output Total 700 ml 900 ml Balance -700 ml -430 ml IV Total 450 ml Tube Feeding 20 ml Output Urine Total 700 ml 900 ml # Bowel Movements 1 1 Laboratory Tests 10/20/18 05:30: White Blood Count 9.2, Red Blood Count 3.28L, Hemoglobin 11.3L, Hematocrit 34.2L , Mean Corpuscular Volume 104H, Mean Corpuscular Hemoglobin 34.4H, Mean Corpuscular Hemoglobin Concent 33.1, Red Cell Distribution Width 10.4L, Platelet Count 513H, Mean Platelet Volume 4.4L, Neutrophils (%) (Auto) 66.2, Lymphocytes (%) (Auto) 22.3, Monocytes (%) (Auto) 9.1, Eosinophils (%) (Auto) 1.6, Basophils (%) (Auto) 0.9, Sodium Level 141, Potassium Level 3.4L, Chloride Level 104, Carbon Dioxide Level 31, Anion Gap 6, Blood Urea Nitrogen 10, Creatinine 0.7, Estimat Glomerular Filtration Rate , Glucose Level 117H, Calcium Level 8.8, Total Bilirubin 0.5, Aspartate Amino Transf (AST/SGOT) 27, Alanine Aminotransferase (ALT/SGPT) 37, Alkaline Phosphatase 69, Ammonia < 10L, Total Protein 6.5, Albumin 2.3L, Globulin 4.2, Albumin/Globulin Ratio 0.5L 10/20/18 15:50: Vancomycin Level Trough [Pending] Height (Feet): 5 Height (Inches): 1.00 Weight (Pounds): 114 Objective General Appearance: WD/WN, lethargic, confused Neck: supple Cardiovascular: normal rate Respiratory/Chest: chest wall non-tender, lungs clear, normal breath sounds, no respiratory distress, no accessory muscle use Abdomen: normal bowel sounds, non tender, soft, no organomegaly, no mass Edema: no edema noted Arm (L), no edema noted Arm (R), no edema noted Leg (L), no edema noted Leg (R), no edema noted Pedal (L), no edema noted Pedal (R), no edema noted Generalized Neurologic: disoriented, aphasia Marc Rosas MD Oct 20, 2018 16:26
[2018-10-20] MEDS: Vancomycin 750mg/NS 275ml IVPB SCH ×2 (17:13)
--- NOTE | 2018-10-20 19:20 | NUR ---
HAND-OFF: Report given to Indu RUIZ. Pt remains stable.
--- NOTE | 2018-10-20 19:36 | NUR ---
NURSE NOTES: Received pt from JOSEPH Mathew. Pt asleep. Family at bedside. Bed in lowest position. Call light within reach. Will continue to monitor.
[2018-10-20 20:00] VITALS: BP 135/73
[2018-10-21] VITALS: BP 123/74
--- NOTE | 2018-10-21 00:30 | Electroencephalogram ---
REQUESTING PHYSICIAN: Marc Rosas M.D. READING PHYSICIAN: Silvano Guadalupe M.D. PROCEDURE PERFORMED: Electroencephalogram. HISTORY: This EEG was performed on an 87-year-old lady with a history of altered mental state associated with hypoglycemia. The purpose of this EEG was to evaluate the patient for the degree and type of cerebral dysfunction. TECHNICAL NOTE: This EEG was performed on a Atlas5D Digital Acquisition Unit with electrodes placed on the scalp according to the International 10-20 system. Ilfac-[id number] and vwfjk-lo-[id number] montages were used. The EEG was of technically mediocre quality as double distance electrodes were used throughout the tracing. OBSERVATIONS: In the reportedly awake state, the background activity consisted of 6-7 Hz theta with intermixed delta frequencies. Drowsiness was characterized by slowing of the background in the 4-5 Hz theta and 1.5-2.5 Hz delta range. No definite focal abnormalities or epileptiform discharges were seen. IMPRESSION: This is an abnormal EEG characterized by slowing of the background predominantly in the 6-7 Hz theta range with some intermixed delta frequencies, in the reportedly awake state. COMMENT: This study is consistent with an encephalopathy of a moderate degree. Clinical correlation is recommended. Silvano Guadalupe M.D., M.S.P.H. DR: KRYSTEN JOB#: [id number] MTDD
--- NOTE | 2018-10-21 02:45 | Consultation ---
DATE OF CONSULTATION: 10/20/2018 CHIEF COMPLAINT: I was asked to see this patient by Dr. Roque Cavazos for nutritional support and possible gastrostomy tube placement. HISTORY OF PRESENT ILLNESS: The patient is an unfortunate 87-year-old [place] woman who is from a nursing facility. She has a history of dementia, but also has altered mental status, and delirium. She has been unable to eat by mouth, unable to swallow, therefore, a nasogastric tube had been placed for feeding. I discussed the indications, risks, alternatives, and possible complications of gastrostomy tube placement with the patient's family, and all questions were answered. They want to talk amongst each other before making a final decision. The patient herself is unable to provide any history and all information is only available from the chart. PAST MEDICAL HISTORY: History of dementia, hypertension, history of probable gastroenteritis. PAST SURGICAL HISTORY: None. FAMILY HISTORY: Noncontributory. SOCIAL HISTORY: The patient resides in a shelter and has had no recent history of smoking or drinking. REVIEW OF SYSTEMS: Unobtainable. ALLERGIES: None. PHYSICAL EXAMINATION: GENERAL: A debilitated woman in her room with family at bedside. HEENT: Normocephalic and atraumatic. Sclerae are anicteric. Oropharynx is clear. NECK: Supple. CHEST: Clear to auscultation. CARDIOVASCULAR: Revealed regular rate. ABDOMEN: Soft. Good bowel sounds. EXTREMITIES: No edema. LABORATORY DATA: Noted. ASSESSMENT: This patient has delirium and dementia and is unable to eat at this time. The patient can undergo gastrostomy tube placement for enteral access and nutrition. However, the patient's family wants to discuss amongst themselves. We respect the patient's overall goals and wishes. The nasogastric tube will be continued for now until the decision is made. RECOMMENDATIONS: 1. Continue nasogastric tube feeding. 2. Decision on PEG per family's wishes. 3. Elevate head of bed. 4. Follow laboratory parameters and exam. Thank you for asking me to participate in the care of this patient. Edmond Vargas M.D. DR: Yessi JOB#: [id number] CC: SMITH
[2018-10-21 03:51] VITALS: BP 125/75
[2018-10-21] MEDS: Vancomycin 750mg/NS 275ml IVPB SCH ×4 (04:20→17:25)
[2018-10-21] MEDS: NovoLOG Insulin Flexpen SUBQ SCH ×4 (05:36→17:39)
[2018-10-21 07:10] LABS: EOSINOPHILS % (AUTO) 0.7 % (0.0-3.0); HEMATOCRIT 28.9 % (37.0-47.0); HEMOGLOBIN 9.8 G/DL (12.0-16.0); LYMPHOCYTES % (AUTO) 16.4 % (20.0-45.0); MEAN CORPUSCULAR VOLUME 102 FL (80-99); MONOCYTES % (AUTO) 8.4 % (1.0-10.0); NEUTROPHILS % (AUTO) 73.5 % (45.0-75.0); PLATELET COUNT 501 K/UL (150-450); RED BLOOD COUNT 2.82 M/UL (4.20-5.40); RED CELL DISTRIBUTION WIDTH 10.6 % (11.6-14.8); WHITE BLOOD COUNT 11.3 K/UL (4.8-10.8)
[2018-10-21 07:12] LABS: ALANINE AMINOTRANSFERASE 27 U/L (12-78); ALKALINE PHOSPHATASE 112 U/L (46-116); ANION GAP 4 mmol/L (5-15); ASPARTATE AMINO TRANSFERASE 20 U/L (15-37); BILIRUBIN,TOTAL 0.7 MG/DL (0.2-1.0); BLOOD UREA NITROGEN 17 mg/dL (7-18); CALCIUM 8.2 MG/DL (8.5-10.1); CARBON DIOXIDE 29 MMOL/L (21-32); CHLORIDE 102 MMOL/L (98-107); CREATININE 0.7 MG/DL (0.55-1.30); POTASSIUM 4.2 MMOL/L (3.5-5.1); SODIUM 135 MMOL/L (136-145)
--- NOTE | 2018-10-21 07:15 | NUR ---
HAND-OFF: Report given to JOSEPH Tipton. Pt stable.
[2018-10-21 08:00] VITALS: BP 100/55
[2018-10-21] MEDS ORDERED: NS 275ml ONE (09:06)
[2018-10-21] MEDS: Heparin 5000 units/ml inj SUBQ SCH ×2 (10:17→20:34)
--- NOTE | 2018-10-21 11:21 | NUR ---
RD ASSESSMENT & RECOMMENDATIONS SEE CARE ACTIVITY FOR COMPLETE ASSESSMENT DAILY ESTIMATED NEEDS: Needs based on Underweight/ 41kg 30-35 kcals/kg 8247-9888 total kcals 1-1.5 g protein/kg 41-62 g total protein 25-30 mL/kg 7172-9952 total fluid mLs NUTRITION DIAGNOSIS: * Swallowing difficulty R/T dysphgia as evidenced by pt now NPO, not alert for PO trials nor MBSS per POWERTRAIN DESIGN ENGINEER, s/p NGT insertion, on TF. * Increased kcal/prot needs R/T underweight status as evidenced by pt is 90% IBW with BMI of 17.6. * Altered nutrition related lab values R/T diabetes as evidenced by episodes of hypo and hyperglycemia, now better controlled. CURRENT DIET:NPO CURRENT TF:Glucerna 1.2 @ 50ml/hr x 24 hrs PO DIET RECOMMENDATIONS: IF SAFE FOR PO -> liberalized REGULAR/ texture per POWERTRAIN DESIGN ENGINEER ENTERAL NUTRITION RECOMMENDATIONS: Glucerna 1.2 @ 50ml/hr x 24 hrs to provide 1200ml, 1440kcal, 72g prot, 966ml free water * Maintain current TF * TF @ goal meets all of kcal/prot needs * HOB over 30 degrees/ water flush per MD ADDITIONAL RECOMMENDATIONS: * TXR PT TO BED WITH BEDSCALE, OBTAIN CALIBRATED BEDSCALE WT -> on NGT feeding, underweight, currently on a bed without bedscale * Monitor lytes daily w/ TF, replete as needed -> check phos and mag (mag last checked on 10/18, phos not done) * Monitor POC: TF (possibly PEG pending family decision) vs oral feeding * Monitor for oral diet order: per POWERTRAIN DESIGN ENGINEER, pt not alert for PO trials nor MBSS * Rec wound eval: coccyx wound photo
[2018-10-21 12:00] VITALS: BP 100/57
[2018-10-21] MEDS: Cefepime HCl 1 GM in D5W 55 ML IVPB SCH (12:35)
--- NOTE | 2018-10-21 13:51 | NUR ---
ST NOTE: SWALLOW STATUS: PATIENT VARIABLY ALERT, STILL NOT CONSISTENTLY ALERT FOR MODIFIED BARIUM SWALLOW STUDY NOR FOR PO INTAKE. STAFF AWARE OF ORAL CARE AND ASP PREC WITH NGT FEEDINGS. PLAN: CONTINUE WITH NGT FEEDINGS FOR NOW, CONSIDER LONGER TERM NONORAL FEEDINGS ONLY IF FAMILY IS RECEPTIVE. WILL REASSESS ON WEDNESDAY FOR MOD BARIUM SWALLOW STUDY AND/OR PO TRIALS. D/W DR DIAZ, FAMILY, AND STAFF
[2018-10-21 16:00] VITALS: BP 104/61
--- NOTE | 2018-10-21 19:15 | NUR ---
NURSE NOTES: Received patient awake, lying in semi lopez's position; resting comfortably. A/O x 2-3. Primarly Kazakh speaking. Does not exhibit any signs of pain. No signs of acute cardiorespiratory distress noted. On bilateral wrists restraints for safety. With NGT patent and intact. Glucerna 1.2 running at 50 mls/hr and tolerating well. Checked IV site intact and flushed. No signs of erythema, bleeding or infiltration noted. With conklin catheter draining well to gravity. Bed at lowest position, brakes on, siderails x 3. Call light within reach. Will continue to monitor.
[2018-10-21 20:00] VITALS: BP 108/58
--- NOTE | 2018-10-21 21:08 | General Progress Note ---
Assessment/Plan Status: stable, not improved Assessment/Plan: Assessment - Dementia - hypoglycemia - Delirium - Failed swallow study Recommendations - continue NGT feeds - Elevate HOB - Discussed with family - decision on PEG pending Subjective Allergies: Coded Allergies: No Known Allergies (Unverified , 10/17/18) Subjective Above noted resting comfortably tolerating TF Objective Last 24 Hour Vital Signs Date Time Temp Pulse Resp B/P (MAP) Pulse Ox O2 Delivery O2 Flow Rate FiO2 10/21/18 20:00 98.1 81 18 108/58 (75) 96 10/21/18 16:00 98.2 77 16 104/61 (75) 95 10/21/18 16:00 100 10/21/18 13:42 Room Air 10/21/18 12:00 73 10/21/18 12:00 98.2 82 16 100/57 (71) 97 10/21/18 09:00 Room Air 10/21/18 08:00 97.7 85 16 100/55 (70) 95 10/21/18 08:00 83 10/21/18 04:00 95 10/21/18 03:51 98.8 93 18 125/75 (92) 98 10/21/18 00:00 93 10/21/18 00:00 97.7 100 18 123/74 (90) 95 Intake and Output 10/20/18 10/21/18 19:00 07:00 Intake Total 1508.333 ml Output Total 700 ml 850 ml Balance 808.333 ml -850 ml Free Water 250 ml IV Total 918.333 ml Tube Feeding 340 ml Output Urine Total 700 ml 850 ml # Bowel Movements 1 1 Laboratory Tests 10/21/18 06:35: White Blood Count 11.3H, Red Blood Count 2.82L, Hemoglobin 9.8L, Hematocrit 28.9L, Mean Corpuscular Volume 102H, Mean Corpuscular Hemoglobin 34.8H, Mean Corpuscular Hemoglobin Concent 34.0, Red Cell Distribution Width 10.6L, Platelet Count 501H, Mean Platelet Volume 4.7L, Neutrophils (%) (Auto) 73.5, Lymphocytes (%) (Auto) 16.4L, Monocytes (%) (Auto) 8.4, Eosinophils (%) (Auto) 0.7, Basophils (%) (Auto) 1.0, Sodium Level 135L, Potassium Level 4.2, Chloride Level 102, Carbon Dioxide Level 29, Anion Gap 4L, Blood Urea Nitrogen 17, Creatinine 0.7, Estimat Glomerular Filtration Rate , Glucose Level 111H, Calcium Level 8.2L, Total Bilirubin 0.7, Aspartate Amino Transf (AST/SGOT) 20, Alanine Aminotransferase (ALT/SGPT) 27, Alkaline Phosphatase 112, Total Protein 5.9L, Albumin 2.0L, Globulin 3.9 Height (Feet): 5 Height (Inches): 1.00 Weight (Pounds): 114 Objective Thin woman NCAT supple CTA RRR abd soft no edema OBS Edmond Vargas MD Oct 21, 2018 21:08
[2018-10-22] VITALS (7 sets, daily range): BP systolic 90–139; BP diastolic 50–76
--- NOTE | 2018-10-22 01:56 | NUR ---
NURSE NOTES: Safety maintained throughout the night. No significant change of condition noted. Will continue current plan of care.
--- NOTE | 2018-10-22 04:54 | NUR ---
NURSE NOTES: Called Jessica Tenorio pharmacist, regarding patient's Vancomycin trough level of 16.2. Per pharmacist, OK to give 0500 Vancomycin 750 mg IV dose.
[2018-10-22] MEDS: Vancomycin 750mg/NS 275ml IVPB SCH ×4 (05:12→17:07)
[2018-10-22] MEDS: NovoLOG Insulin Flexpen SUBQ SCH ×4 (05:38→17:19)
--- NOTE | 2018-10-22 07:07 | NUR ---
HAND-OFF: Report given to Celestino/JOSEPH Tipton. Plan of care endorsed.
--- NOTE | 2018-10-22 08:00 | NUR ---
NURSE NOTES: Pt asleep/obtunded in bed, breathing easily on room air, no evidence of SOB. IV access right forearm with NS running at TKO. NG tube in place, verified by auscultation/aspiration, previously verified by XR with Glu 1.2 running at 50 ml/hr, 0 ml residual, given 50 ml free water flush. Bilateral wrist restraints in place, good distal functions both hands, due to pulling NG tube. Oshea cath in place, patent and draining clear yellow urine into collection bag at foot of bed. Bed left in low position, side rails up x 3, exit alarm set and call light left near pt's hand.
--- NOTE | 2018-10-22 08:27 | General Progress Note ---
Assessment/Plan Problem List: (1) Altered level of consciousness ICD Codes: R40.4 - Transient alteration of awareness SNOMED: 0113503 (2) Hypoglycemia ICD Codes: E16.2 - Hypoglycemia, unspecified SNOMED: 562346549 (3) Encephalopathy ICD Codes: G93.40 - Encephalopathy, unspecified SNOMED: 55646294 Status: stable, not improved Assessment/Plan: ngt feeds monitor bs abx eeg- reviewed. no szs gi eval appreciated. family deciding on gt may need gt if swallowing does not improve Subjective ROS Limited/Unobtainable: Yes Constitutional: Reports: malaise, weakness HEENT: Reports: no symptoms Cardiovascular: Reports: no symptoms Respiratory: Reports: no symptoms Gastrointestinal/Abdominal: Reports: difficulty swallowing, poor appetite, poor fluid intake Genitourinary: Reports: no symptoms Neurologic/Psychiatric: Reports: pre-existing deficit Endocrine: Reports: no symptoms Hematologic/Lymphatic: Reports: no symptoms Allergies: Coded Allergies: No Known Allergies (Unverified , 10/17/18) All Systems: reviewed and negative except above Subjective ngt placed. failed swallow eval. remains withdrawn and confused. Objective Last 24 Hour Vital Signs Date Time Temp Pulse Resp B/P (MAP) Pulse Ox O2 Delivery O2 Flow Rate FiO2 10/22/18 04:00 98.3 77 19 139/76 (97) 97 10/22/18 04:00 84 10/22/18 00:00 75 10/22/18 00:00 98.2 75 18 136/74 (94) 96 10/21/18 21:00 Room Air 10/21/18 20:00 98.1 81 18 108/58 (75) 96 10/21/18 20:00 87 10/21/18 16:00 98.2 77 16 104/61 (75) 95 10/21/18 16:00 100 10/21/18 13:42 Room Air 10/21/18 12:00 73 10/21/18 12:00 98.2 82 16 100/57 (71) 97 10/21/18 09:00 Room Air Intake and Output 10/21/18 10/22/18 19:00 07:00 Intake Total 50 ml 915 ml Output Total 800 ml 1250 ml Balance -750 ml -335 ml Free Water 40 ml IV Total 275 ml Tube Feeding 50 ml 600 ml Output Urine Total 800 ml 1250 ml # Bowel Movements 2 1 Laboratory Tests 10/22/18 04:03: Vancomycin Level Trough 16.2H Height (Feet): 5 Height (Inches): 1.00 Weight (Pounds): 114 Objective General Appearance: WD/WN, lethargic, confused Neck: supple Cardiovascular: normal rate Respiratory/Chest: chest wall non-tender, lungs clear, normal breath sounds, no respiratory distress, no accessory muscle use Abdomen: normal bowel sounds, non tender, soft, no organomegaly, no mass Edema: no edema noted Arm (L), no edema noted Arm (R), no edema noted Leg (L), no edema noted Leg (R), no edema noted Pedal (L), no edema noted Pedal (R), no edema noted Generalized Neurologic: disoriented, aphasia Marc Rosas MD Oct 22, 2018 08:27
--- NOTE | 2018-10-22 08:40 | General Progress Note ---
Assessment/Plan Status: stable, not improved Assessment/Plan: Assessment/Plan Status: stable, not improved Assessment/Plan: Assessment - Dementia - hypoglycemia - Delirium - Failed swallow study Recommendations - continue NGT feeds - Elevate HOB - Discussed with family - decision on PEG pending Subjective ROS Limited/Unobtainable: No Allergies: Coded Allergies: No Known Allergies (Unverified , 10/17/18) Objective Last 24 Hour Vital Signs Date Time Temp Pulse Resp B/P (MAP) Pulse Ox O2 Delivery O2 Flow Rate FiO2 10/22/18 08:00 82 10/22/18 04:00 98.3 77 19 139/76 (97) 97 10/22/18 04:00 84 10/22/18 00:00 75 10/22/18 00:00 98.2 75 18 136/74 (94) 96 10/21/18 21:00 Room Air 10/21/18 20:00 98.1 81 18 108/58 (75) 96 10/21/18 20:00 87 10/21/18 16:00 98.2 77 16 104/61 (75) 95 10/21/18 16:00 100 10/21/18 13:42 Room Air 10/21/18 12:00 73 10/21/18 12:00 98.2 82 16 100/57 (71) 97 10/21/18 09:00 Room Air Intake and Output 10/21/18 10/22/18 19:00 07:00 Intake Total 50 ml 915 ml Output Total 800 ml 1250 ml Balance -750 ml -335 ml Free Water 40 ml IV Total 275 ml Tube Feeding 50 ml 600 ml Output Urine Total 800 ml 1250 ml # Bowel Movements 2 1 Laboratory Tests 10/22/18 04:03: Vancomycin Level Trough 16.2H Height (Feet): 5 Height (Inches): 1.00 Weight (Pounds): 114 General Appearance: alert EENT: normal ENT inspection Neck: supple Cardiovascular: normal rate Respiratory/Chest: decreased breath sounds Abdomen: normal bowel sounds, non tender, soft Extremities: non-tender Raji Tolentino MD Oct 22, 2018 08:40
[2018-10-22] MEDS: Heparin 5000 units/ml inj SUBQ SCH ×2 (09:43→21:20)
--- NOTE | 2018-10-22 10:29 | Diagnostic Imaging Report ---
EXAM: XR Chest, 1 View CLINICAL HISTORY: INFECT TECHNIQUE: Frontal view of the chest. COMPARISON: Chest x-rays dated 10/17/18 (incorrectly labeled as 01/14/19) FINDINGS: Lungs: Unremarkable. The lungs appear clear. No focal consolidation. Pleural space: Unremarkable. The costophrenic angles are sharp. No visible pneumothorax. Heart: Unremarkable. No cardiomegaly. Mediastinum: Unremarkable. Bones/joints: Unremarkable. Vasculature: Atherosclerotic calcifications are noted within the aortic arch. Tubes, lines and devices: Telemetry leads overlie the thorax. IMPRESSION: No acute findings.
[2018-10-22] MEDS: Cefepime HCl 1 GM in D5W 55 ML IVPB SCH (11:38)
[2018-10-22] MEDS ORDERED: NS 275ml ONE (17:32)
--- NOTE | 2018-10-22 19:58 | NUR ---
NURSE NOTES: Received pt from JOSEPH Tipton. Pt asleep. Bed in lowest position. restraints on. Oshea intact and draining. Call light within reach. Will continue to monitor.
[2018-10-23] VITALS: BP 112/65
--- NOTE | 2018-10-23 02:28 | NUR ---
NURSE NOTES: Called and left a message with Dr. Rosas regarding lab orders. Awaiting call back.
[2018-10-23 04:00] VITALS: BP 120/66
[2018-10-23] MEDS: Vancomycin 750mg/NS 275ml IVPB SCH ×4 (05:10→17:13)
[2018-10-23] MEDS: NovoLOG Insulin Flexpen SUBQ SCH ×4 (05:18→17:51)
--- NOTE | 2018-10-23 06:08 | General Progress Note ---
Assessment/Plan Status: stable, not improved Assessment/Plan: Assessment/Plan Status: stable, not improved Assessment/Plan: Assessment - Dementia - hypoglycemia - Delirium - Failed swallow study Recommendations - continue NGT feeds - Elevate HOB - Discussed with family - decision on PEG pending Subjective ROS Limited/Unobtainable: No Allergies: Coded Allergies: No Known Allergies (Unverified , 10/17/18) Objective Last 24 Hour Vital Signs Date Time Temp Pulse Resp B/P (MAP) Pulse Ox O2 Delivery O2 Flow Rate FiO2 10/23/18 04:00 70 10/23/18 04:00 98.0 81 18 120/66 (84) 98 10/23/18 00:00 69 10/23/18 00:00 97.7 80 18 112/65 (81) 95 10/22/18 21:00 Room Air 10/22/18 20:00 90 10/22/18 20:00 98.1 84 18 118/64 (82) 98 10/22/18 16:00 99.0 83 18 98/50 (66) 97 10/22/18 16:00 78 10/22/18 12:52 104/58 (73) 10/22/18 12:00 99.0 79 18 90/57 (68) 96 10/22/18 12:00 73 10/22/18 10:35 98.8 10/22/18 09:00 Room Air 10/22/18 08:00 100.4 82 18 129/67 (87) 97 10/22/18 08:00 82 Intake and Output 10/22/18 10/23/18 19:00 07:00 Intake Total 1000 ml Output Total 900 ml Balance 100 ml Free Water 400 ml Tube Feeding 600 ml Output Urine Total 900 ml # Bowel Movements 1 1 Height (Feet): 5 Height (Inches): 1.00 Weight (Pounds): 114 General Appearance: no apparent distress EENT: normal ENT inspection Neck: supple Cardiovascular: normal rate Respiratory/Chest: decreased breath sounds Abdomen: normal bowel sounds, non tender, soft Extremities: non-tender Raji Tolentino MD Oct 23, 2018 06:08
--- NOTE | 2018-10-23 06:45 | NUR ---
HAND-OFF: Report given to JOSEPH Tirado. Pt stable.
--- NOTE | 2018-10-23 07:30 | NUR ---
NURSE NOTES: Pt asleep in bed breathing easily on room air, no evidence of SOB. IV access right hand with NS running at TKO. NG tube in place, verified by auscultation/aspiration, previously verified by XR with Glu 1.2 running at 50 ml/hr, 0 ml residual, given 100 ml free water flush. Bilateral wrist restraints in place, good distal functions both hands, due to pulling NG tube. Oshea cath in place, patent and draining clear yellow urine into collection bag at foot of bed. Bed left in low position, side rails up x 3, exit alarm set and call light left near pt's hand. Addendum: 10/23/18 at 0745 by DORY GILMAN RN Vital signs stable with SR @ 72 on monitor
[2018-10-23 08:00] VITALS: BP 107/50
[2018-10-23] MEDS: Heparin 5000 units/ml inj SUBQ SCH ×2 (08:45→21:00)
--- NOTE | 2018-10-23 10:57 | General Progress Note ---
Assessment/Plan Problem List: (1) Altered level of consciousness ICD Codes: R40.4 - Transient alteration of awareness SNOMED: 2110848 (2) Hypoglycemia ICD Codes: E16.2 - Hypoglycemia, unspecified SNOMED: 997080594 (3) Encephalopathy ICD Codes: G93.40 - Encephalopathy, unspecified SNOMED: 09369268 Status: stable, not improved Assessment/Plan: ngt feeds monitor bs abx eeg- reviewed. no szs gi eval appreciated. family deciding on gt may need gt if swallowing does not improve Subjective ROS Limited/Unobtainable: No Constitutional: Reports: malaise, weakness HEENT: Reports: no symptoms Cardiovascular: Reports: no symptoms Respiratory: Reports: no symptoms Gastrointestinal/Abdominal: Reports: difficulty swallowing Genitourinary: Reports: no symptoms Neurologic/Psychiatric: Reports: no symptoms Endocrine: Reports: no symptoms Hematologic/Lymphatic: Reports: anemia Allergies: Coded Allergies: No Known Allergies (Unverified , 10/17/18) All Systems: reviewed and negative except above Subjective no events. remains withdrawn and confused. still with ngt. tolerating feeds. restrained to keep pt from pulling out ngt Objective Last 24 Hour Vital Signs Date Time Temp Pulse Resp B/P (MAP) Pulse Ox O2 Delivery O2 Flow Rate FiO2 10/23/18 08:05 Room Air 10/23/18 08:00 97.1 72 21 107/50 (69) 97 10/23/18 08:00 72 10/23/18 04:00 70 10/23/18 04:00 98.0 81 18 120/66 (84) 98 10/23/18 00:00 69 10/23/18 00:00 97.7 80 18 112/65 (81) 95 10/22/18 21:00 Room Air 10/22/18 20:00 90 10/22/18 20:00 98.1 84 18 118/64 (82) 98 10/22/18 16:00 99.0 83 18 98/50 (66) 97 10/22/18 16:00 78 10/22/18 12:52 104/58 (73) 10/22/18 12:00 99.0 79 18 90/57 (68) 96 10/22/18 12:00 73 Intake and Output 10/22/18 10/23/18 19:00 07:00 Intake Total 1000 ml Output Total 900 ml 1000 ml Balance 100 ml -1000 ml Free Water 400 ml Tube Feeding 600 ml Output Urine Total 900 ml 1000 ml # Bowel Movements 1 1 Height (Feet): 5 Height (Inches): 1.00 Weight (Pounds): 114 Objective General Appearance: WD/WN, lethargic, confused Neck: supple Cardiovascular: normal rate Respiratory/Chest: chest wall non-tender, lungs clear, normal breath sounds, no respiratory distress, no accessory muscle use Abdomen: normal bowel sounds, non tender, soft, no organomegaly, no mass Edema: no edema noted Arm (L), no edema noted Arm (R), no edema noted Leg (L), no edema noted Leg (R), no edema noted Pedal (L), no edema noted Pedal (R), no edema noted Generalized Neurologic: disoriented, aphasia Marc Rosas MD Oct 23, 2018 10:57
[2018-10-23] MEDS: D5 1/2NS 1,000 ML IV SCH (11:12)
[2018-10-23] MEDS: Cefepime HCl 1 GM in D5W 55 ML IVPB SCH (11:12)
[2018-10-23 11:23] LABS: BASOPHILS % (AUTO) 0.8 % (0.0-2.0); EOSINOPHILS % (AUTO) 1.1 % (0.0-3.0); HEMATOCRIT 30.8 % (37.0-47.0); HEMOGLOBIN 10.2 G/DL (12.0-16.0); LYMPHOCYTES % (AUTO) 17.1 % (20.0-45.0); MEAN CORPUSCULAR VOLUME 102 FL (80-99); MONOCYTES % (AUTO) 7.1 % (1.0-10.0); NEUTROPHILS % (AUTO) 73.9 % (45.0-75.0); PLATELET COUNT 543 K/UL (150-450); RED BLOOD COUNT 3.01 M/UL (4.20-5.40); RED CELL DISTRIBUTION WIDTH 10.8 % (11.6-14.8); WHITE BLOOD COUNT 8.9 K/UL (4.8-10.8)
[2018-10-23 11:39] LABS: ALANINE AMINOTRANSFERASE 21 U/L (12-78); ALBUMIN/GLOBULIN RATIO 0.5 (1.0-2.7); ALKALINE PHOSPHATASE 77 U/L (46-116); ANION GAP 6 mmol/L (5-15); ASPARTATE AMINO TRANSFERASE 17 U/L (15-37); BILIRUBIN,TOTAL 0.3 MG/DL (0.2-1.0); BLOOD UREA NITROGEN 22 mg/dL (7-18); CALCIUM 8.9 MG/DL (8.5-10.1); CARBON DIOXIDE 29 MMOL/L (21-32); CHLORIDE 104 MMOL/L (98-107); CREATININE 0.7 MG/DL (0.55-1.30); POTASSIUM 4.5 MMOL/L (3.5-5.1); SODIUM 139 MMOL/L (136-145)
[2018-10-23 12:00] VITALS: BP 117/83
[2018-10-23 16:00] VITALS: BP 98/57
--- NOTE | 2018-10-23 19:47 | NUR ---
NURSE NOTES: Received pt from JOSEPH Tirado. Pt awake, alert, and talkative. Family at bedside. Bed in lowest position. Call light within reach. IV site intact and patent. Will continue to monitor.
[2018-10-23 20:00] VITALS: BP_SYST 117; BP_SYST 98; BP_DIAS 57; BP_DIAS 66
[2018-10-24] VITALS (10 sets, daily range): BP systolic 106–137; BP diastolic 60–77
[2018-10-24] MEDS: D5 1/2NS 1,000 ML IV SCH ×3 (00:20→18:44)
--- NOTE | 2018-10-24 02:48 | NUR ---
NURSE NOTES: Called and left a message with Dr. Rosas informing him that the pt pulled out her NGtube, but since she is scheduled for PEG placement this morning, I did not attempt to put the tube back in. Will continue to monitor.
[2018-10-24] MEDS: Vancomycin 750mg/NS 275ml IVPB SCH ×4 (05:12→17:55)
[2018-10-24] MEDS: NovoLOG Insulin Flexpen SUBQ SCH ×4 (05:12→18:00)
[2018-10-24] MEDS ORDERED: fentaNYL 100 mcg/2 mL IV PRN (07:00)
[2018-10-24] MEDS ORDERED: Midazolam 2mg/2ml Inj IVP PRN (07:00)
[2018-10-24] MEDS ORDERED: Atropine Inj 1mg/10ml Syr IV PRN (07:00)
[2018-10-24] MEDS ORDERED: DiphenhydrAMINE 50mg/ml Inj IVP PRN (07:00)
--- NOTE | 2018-10-24 07:06 | Anethesia Preoperative Eval ---
Anesthesia Pre-op PMH/ROS General Date of Evaluation: Oct 24, 2018 Time of Evaluation: 07:06 Anesthesiologist: amilcar ASA Score: ASA 4 Mallampati Score Class I : Soft palate, uvula, fauces, pillars visible Class II: Soft palate, uvula, fauces visible Class III: Soft palate, base of uvula visible Class IV: Only hard plate visible Mallampati Classification: Class II Surgeon: maggy Diagnosis: dysphagia Surgical Procedure: egd/peg Anesthesia History: none Social History: smoking - nonsmoker Family History: no anesthesia problems Allergies: Coded Allergies: No Known Allergies (Unverified , 10/17/18) Medications: see eMAR Patient NPO?: Yes Past Medical History Cardiovascular: Reports: HTN, other - hyperlipidemia Neurologic/Psychiatric: Reports: other - acute encephalopathy, aloc Endocrine: Reports: other - hypoglycemia Anesthesia Pre-op Phys. Exam Physician Exam Last Vital Signs Date Time Temp Pulse Resp B/P (MAP) Pulse Ox O2 Delivery O2 Flow Rate FiO2 10/24/18 04:00 98.1 81 17 134/73 (93) 96 10/23/18 21:00 Room Air Constitutional: NAD Neurologic: CN 2-12 intact Cardiovascular: RRR Respiratory: CTA Gastrointestinal: S/NT/ND Airway Exam Mallampati Score: Class II MO: limited Neck: decreased rom of motion to lateral rotation and extension TMD: 2fb ROM: limited Teeth: missing Anesthesia Pre-op A/P Labs Hematology Test 10/23/18 11:15 White Blood Count 8.9 K/UL (4.8-10.8) Red Blood Count 3.01 M/UL (4.20-5.40) L Hemoglobin 10.2 G/DL (12.0-16.0) L Hematocrit 30.8 % (37.0-47.0) L Mean Corpuscular Volume 102 FL (80-99) H Mean Corpuscular Hemoglobin 34.1 PG (27.0-31.0) H Mean Corpuscular Hemoglobin Concent 33.3 G/DL (32.0-36.0) Red Cell Distribution Width 10.8 % (11.6-14.8) L Platelet Count 543 K/UL (150-450) H Mean Platelet Volume 4.7 FL (6.5-10.1) L Neutrophils (%) (Auto) 73.9 % (45.0-75.0) Lymphocytes (%) (Auto) 17.1 % (20.0-45.0) L Monocytes (%) (Auto) 7.1 % (1.0-10.0) Eosinophils (%) (Auto) 1.1 % (0.0-3.0) Basophils (%) (Auto) 0.8 % (0.0-2.0) Chemistry Test 10/23/18 11:15 Sodium Level 139 MMOL/L (136-145) Potassium Level 4.5 MMOL/L (3.5-5.1) Chloride Level 104 MMOL/L (98-107) Carbon Dioxide Level 29 MMOL/L (21-32) Anion Gap 6 mmol/L (5-15) Blood Urea Nitrogen 22 mg/dL (7-18) H Creatinine 0.7 MG/DL (0.55-1.30) Estimat Glomerular Filtration Rate mL/min (>60) Glucose Level 115 MG/DL (74-106) H Calcium Level 8.9 MG/DL (8.5-10.1) Total Bilirubin 0.3 MG/DL (0.2-1.0) Aspartate Amino Transf (AST/SGOT) 17 U/L (15-37) Alanine Aminotransferase (ALT/SGPT) 21 U/L (12-78) Alkaline Phosphatase 77 U/L (46-116) Total Protein 6.4 G/DL (6.4-8.2) Albumin 2.0 G/DL (3.4-5.0) L Globulin 4.4 g/dL Albumin/Globulin Ratio 0.5 (1.0-2.7) L Risk Assessment & Plan Assessment: asa4 Plan: mac Status Change Before Surgery: No Pre-Antibiotics Drug: vancomycin/cefepime Dorothy Arroyo MD Oct 24, 2018 07:06
[2018-10-24] MEDS ORDERED: Lidocaine 1% MPF 10mg/ml 5ml ONE (07:30)
[2018-10-24] MEDS ORDERED: Propofol 200mg/20ml IV ONE (07:30)
--- NOTE | 2018-10-24 07:42 | NUR ---
HAND-OFF: Report given to JOSEPH De La Vega. Pt stable.
--- NOTE | 2018-10-24 07:44 | NUR ---
NURSE NOTES: Nurse report given by JOSEPH Griggs. Patient's getting ready to go down for PEG placement. Patient's in stable condition, no s/s of acute distress or SOB. IV is saline lock, flushed well, patent and asymptomatic. AO x 1, lethargic. Patient's off the floor at 0745. Will continue to monitor. screening technician and charge nurse are aware that she's off the floor for procedure.
[2018-10-24] MEDS ORDERED: NS 500ML IVPB ONE (07:55)
--- NOTE | 2018-10-24 08:07 | General Progress Note ---
Assessment/Plan Status: stable, not improved Assessment/Plan: Assessment - Dementia - Elevated MCV with normal B12/Folate/TSH - ? etiology - hypoglycemia - Delirium - Failed swallow study - family agreed to PEG over weekend Recommendations - NPO for PEG - Elevate HOB - Follow CBC - can consider future heme eval - PEG placement today Subjective Allergies: Coded Allergies: No Known Allergies (Unverified , 10/17/18) Subjective Above noted Seen in GI lab resting comfortably d/w anesthesia appears at times to have short apnic episodes but awake and normal O2 saturation will proceed with PEG Objective Last 24 Hour Vital Signs Date Time Temp Pulse Resp B/P (MAP) Pulse Ox O2 Delivery O2 Flow Rate FiO2 10/24/18 04:00 98.1 81 17 134/73 (93) 96 10/24/18 04:00 72 10/24/18 00:00 79 10/24/18 00:00 98.4 78 19 137/77 (97) 97 10/23/18 21:00 Room Air 10/23/18 20:00 80 10/23/18 20:00 99.8 84 18 117/66 (83) 96 10/23/18 16:00 97.1 74 18 98/57 (71) 96 10/23/18 16:00 81 10/23/18 12:00 76 10/23/18 12:00 98.3 78 19 117/83 (94) 97 Intake and Output 10/23/18 10/24/18 19:00 07:00 Output Total 1500 ml 1700 ml Balance -1500 ml -1700 ml Output Urine Total 1500 ml 1700 ml # Bowel Movements 1 1 Laboratory Tests 10/23/18 11:15: White Blood Count 8.9, Red Blood Count 3.01L, Hemoglobin 10.2L, Hematocrit 30.8L , Mean Corpuscular Volume 102H, Mean Corpuscular Hemoglobin 34.1H, Mean Corpuscular Hemoglobin Concent 33.3, Red Cell Distribution Width 10.8L, Platelet Count 543H, Mean Platelet Volume 4.7L, Neutrophils (%) (Auto) 73.9, Lymphocytes (%) (Auto) 17.1L, Monocytes (%) (Auto) 7.1, Eosinophils (%) (Auto) 1.1, Basophils (%) (Auto) 0.8, Sodium Level 139, Potassium Level 4.5, Chloride Level 104, Carbon Dioxide Level 29, Anion Gap 6, Blood Urea Nitrogen 22H, Creatinine 0.7, Estimat Glomerular Filtration Rate , Glucose Level 115H, Calcium Level 8.9, Total Bilirubin 0.3, Aspartate Amino Transf (AST/SGOT) 17, Alanine Aminotransferase (ALT/SGPT) 21, Alkaline Phosphatase 77, Total Protein 6.4, Albumin 2.0L, Globulin 4.4, Albumin/Globulin Ratio 0.5L Height (Feet): 5 Height (Inches): 1.00 Weight (Pounds): 114 Objective Thin woman NCAT supple CTA RRR abd soft no edema OBS Edmond Vargas MD Oct 24, 2018 08:07
--- NOTE | 2018-10-24 08:08 | Pre-Procedure Note/Attestation ---
Pre-Procedure Note/Attestation Complete Prior to Procedure Planned Procedure: not applicable Procedure Narrative: EGD, PEG Indications for Procedure Pre-Operative Diagnosis: dysphagia Attestation I attest that I discussed the nature of the procedure; its benefits; risks and complications; and alternatives (and the risks and benefits of such alternatives ), prior to the procedure, with the patient (or the patient's legal surgical device sales representative). I attest that, if there was a reasonable possibility of needing a blood transfusion, the patient (or the patient's legal surgical device sales representative) was given the [facility] standardized written summary, pursuant to the [place] Blood Safety Act ([place] Health and Safety Code # 1645, as amended). I attest that I re-evaluated the patient just prior to the surgery and that there has been no change in the patient's H&P, except as documented below: Edmond Vargas MD Oct 24, 2018 08:08
--- NOTE | 2018-10-24 08:33 | Endoscopy Procedure Note ---
Endoscopy Procedure Note General Indication for Procedure: dysphagia Procedures Performed: EGD, PEG Operative Findings/Diagnosis: Normal EGD, PEG placed, [address] PEG Specimen: none Pt Tolerated Procedure Well: Yes Estimated Blood Loss: none Anesthesia Anesthesiologist: Neftaly Betancourt Anesthesia: MAC Medications Medication Given: see anesthesia record Inserted Devices Implant(s) used?: No GI Core Measures 50 yrs or older w/o bx or poly: Not Applicable 10yrs. F/U recommended: Not Applicable Edmond Vargas MD Oct 24, 2018 08:33
--- NOTE | 2018-10-24 08:34 | Brief Operative Note ---
Immediate Post Operative Note Operative Note Chief Complaint: Dysphagia Pre-op Diagnosis: dysphagia Procedure: EGD, PEG placement Post-op Diagnosis: Normal EGD, PEG placed, [address] the PEG Surgeon: Sam Anesthesiologist: Neftaly Betancourt Anesthesia: MAC, moderate sedation Specimen: none Complications: none Condition: stable Fluids: Recorded per anesthesia Estimated Blood Loss: none Drains: none Implant(s) used?: No Edmond Vargas MD Oct 24, 2018 08:34
--- NOTE | 2018-10-24 09:10 | NUR ---
NURSE NOTES: Patient came back from PEG placement. Patient's in stable condition, no s/s of acute distress or SOB. AO x1, lethargic and sleepy. No sign of bleeding at the surgical site. Abdominal binder was ordered for patient. Will continue to monitor.
--- NOTE | 2018-10-24 09:28 | Immediate Post-Op Evaluation ---
Immediate Post-Op Evalulation Immediate Post-Op Evalulation Procedure: egd/peg Date of Evaluation: Oct 24, 2018 Time of Evaluation: 08:52 IV Fluids: 400ml 0.9ns Blood Products: none Estimated Blood Loss: negligible Blood Pressure Systolic: 113 Blood Pressure Diastolic: 64 Pulse Rate: 67 Respiratory Rate: 18 O2 Sat by Pulse Oximetry: 100 Temperature (Fahrenheit): 97.3 Pain Score (1-10): 0 Nausea: No Vomiting: No Complications none Patient Status: awake, reacts, patent Hydration Status: adequate Drug: Dorothy Melton MD Oct 24, 2018 09:28
--- NOTE | 2018-10-24 09:29 | 48 Hour Post Anesthesia Eval ---
Post Anesthesia Evaluation Procedure: egd/peg Date of Evaluation: Oct 24, 2018 Time of Evaluation: 08:55 Blood Pressure Systolic: 125 0: 67 Pulse Rate: 65 Respiratory Rate: 20 Temperature (Fahrenheit): 97.3 O2 Sat by Pulse Oximetry: 100 Airway: patent Nausea: No Vomiting: No Pain Intensity: 0 Hydration Status: adequate Cardiopulmonary Status: stable Mental Status/LOC: patient returned to baseline Post-Anesthesia Complications: none Follow-up care needed: N/A Dorothy Arroyo MD Oct 24, 2018 09:29
--- NOTE | 2018-10-24 09:29 | NUR ---
CASE MANAGEMENT:REVIEW 10/24/18 SI: ENCEPHALOPATHY.DYSPHAGIA 97.2 70 23 127/73 98% ON RA IS: EGD W/PEG PLACEMENT TODAY DO NOT USE PEG TODAY FOR FEEDINGS OR MEDS IVF@100/HR IV VANCOMYCIN Q12 IV CEFEPIME Q24 HEPARIN SQ Q12 : TELEMETRY STATUS DCP: FROM [facility]: WAIT FOR CLEARANCE TO USE PEG
[2018-10-24] MEDS: Heparin 5000 units/ml inj SUBQ SCH ×2 (10:02→21:00)
--- NOTE | 2018-10-24 12:23 | General Progress Note ---
Assessment/Plan Problem List: (1) Altered level of consciousness ICD Codes: R40.4 - Transient alteration of awareness SNOMED: 5686937 (2) Hypoglycemia ICD Codes: E16.2 - Hypoglycemia, unspecified SNOMED: 551175419 (3) Encephalopathy ICD Codes: G93.40 - Encephalopathy, unspecified SNOMED: 34933083 Status: stable, progressing, not improved Assessment/Plan: npo gt placement today monitor bs Subjective ROS Limited/Unobtainable: No Constitutional: Reports: malaise, weakness HEENT: Reports: no symptoms Respiratory: Reports: no symptoms Gastrointestinal/Abdominal: Reports: difficulty swallowing Genitourinary: Reports: no symptoms Neurologic/Psychiatric: Reports: pre-existing deficit Endocrine: Reports: no symptoms Hematologic/Lymphatic: Reports: no symptoms Allergies: Coded Allergies: No Known Allergies (Unverified , 10/17/18) All Systems: reviewed and negative except above Subjective no events. going down for gt placement. no other events. no fever or chills. Objective Last 24 Hour Vital Signs Date Time Temp Pulse Resp B/P (MAP) Pulse Ox O2 Delivery O2 Flow Rate FiO2 10/24/18 09:05 97.2 70 23 127/73 98 Room Air 10/24/18 09:00 Room Air 10/24/18 09:00 69 25 106/65 96 Room Air 10/24/18 08:50 65 23 125/67 100 Nasal Cannula 3 10/24/18 08:45 70 24 109/64 100 Nasal Cannula 3 10/24/18 08:41 97.3 67 22 113/64 100 Nasal Cannula 3 10/24/18 08:00 57 10/24/18 04:00 98.1 81 17 134/73 (93) 96 10/24/18 04:00 72 10/24/18 00:00 79 10/24/18 00:00 98.4 78 19 137/77 (97) 97 10/23/18 21:00 Room Air 10/23/18 20:00 80 10/23/18 20:00 99.8 84 18 117/66 (83) 96 10/23/18 16:00 97.1 74 18 98/57 (71) 96 10/23/18 16:00 81 Intake and Output 10/23/18 10/24/18 19:00 07:00 Output Total 1500 ml 1700 ml Balance -1500 ml -1700 ml Output Urine Total 1500 ml 1700 ml # Bowel Movements 1 1 Height (Feet): 5 Height (Inches): 1.00 Weight (Pounds): 114 Objective General Appearance: WD/WN, lethargic, confused Neck: supple Cardiovascular: normal rate Respiratory/Chest: chest wall non-tender, lungs clear, normal breath sounds, no respiratory distress, no accessory muscle use Abdomen: normal bowel sounds, non tender, soft, no organomegaly, no mass Edema: no edema noted Arm (L), no edema noted Arm (R), no edema noted Leg (L), no edema noted Leg (R), no edema noted Pedal (L), no edema noted Pedal (R), no edema noted Generalized Neurologic: disoriented, aphasia Marc Rosas MD Oct 24, 2018 12:23
--- NOTE | 2018-10-24 13:52 | NUR ---
SPEECH PATHOLOGY: ST NOTE/D/C SUMMARY: SWALLOW STATUS: PATIENT VARIABLY ALERT, STILL NOT CONSISTENTLY ALERT. PATIENT UNABLE TO SUSTAIN NECESSARY WAKEFULNESS TO SAFELY PARTICIPATE IN A VIDEO SWALLOW STUDY S/P PEG PLACEMENT PER RN ELSY, PATIENT SLEEPING MOST OF THE TIME PATIENT PARTIALLY MET GOALS D/C PENDING BACK TO SNF NO FURTHER SKILLED ST SERVICES APPEAR TO BE NEEDED AT THIS TIME
[2018-10-24] MEDS: Cefepime HCl 1 GM in D5W 55 ML IVPB SCH (16:32)
--- NOTE | 2018-10-24 19:30 | NUR ---
HAND-OFF: Report given to JOSEPH Griggs. Plan of care endorsed. .
--- NOTE | 2018-10-24 19:40 | NUR ---
NURSE NOTES: Received pt from JOSEPH De La Vega. Pt awake, alert, and talkative but unable to comprehend language. Call light with Addendum: 10/24/18 at 2148 by Indu Wallace RN ...within reach. Bed in lowest position. Oshea and IV site intact and patent. PEG in place. No feeding ordered yet. Will continue to monitor.
[2018-10-24] MEDS ORDERED: Vancomycin 750 MG in D5W 275 ML IVPB SCH (21:00)
[2018-10-25] VITALS: BP 101/60
[2018-10-25 04:00] VITALS: BP 120/60
[2018-10-25] MEDS: D5 1/2NS 1,000 ML IV SCH ×3 (05:31→23:51)
[2018-10-25] MEDS: Vancomycin 750mg/NS 275ml IVPB SCH ×4 (05:32→17:18)
[2018-10-25] MEDS: NovoLOG Insulin Flexpen SUBQ SCH ×5 (05:36→23:54)
[2018-10-25 07:32] LABS: EOSINOPHILS % (AUTO) 1.2 % (0.0-3.0); HEMATOCRIT 37.1 % (37.0-47.0); HEMOGLOBIN 12.1 G/DL (12.0-16.0); LYMPHOCYTES % (AUTO) 21.2 % (20.0-45.0); MEAN CORPUSCULAR VOLUME 104 FL (80-99); MONOCYTES % (AUTO) 8.1 % (1.0-10.0); NEUTROPHILS % (AUTO) 68.5 % (45.0-75.0); PLATELET COUNT 500 K/UL (150-450); RED BLOOD COUNT 3.56 M/UL (4.20-5.40); RED CELL DISTRIBUTION WIDTH 10.8 % (11.6-14.8); WHITE BLOOD COUNT 7.8 K/UL (4.8-10.8)
--- NOTE | 2018-10-25 07:45 | NUR ---
NURSE NOTES: Nurse report given by JOSEPH Griggs. Patient's asleep in bed, showed pain with facial expression when touch. Bed lowest position, break engaged, call light within reach. IV is running fluid, patent and asymptomatic. Surgical site has abdominal binder. Will continue to monitor.
--- NOTE | 2018-10-25 07:55 | NUR ---
HAND-OFF: Report given to JOSEPH De La Vega. Pt stable.
--- NOTE | 2018-10-25 07:55 | General Progress Note ---
Assessment/Plan Problem List: (1) Altered level of consciousness ICD Codes: R40.4 - Transient alteration of awareness SNOMED: 8895680 (2) Hypoglycemia ICD Codes: E16.2 - Hypoglycemia, unspecified SNOMED: 266113011 (3) Encephalopathy ICD Codes: G93.40 - Encephalopathy, unspecified SNOMED: 80737323 Status: stable, progressing, not improved Assessment/Plan: gt feeds per gi dc ivf iv abx dc planning to snf soon Subjective ROS Limited/Unobtainable: No Constitutional: Reports: malaise, weakness HEENT: Reports: no symptoms Cardiovascular: Reports: no symptoms Respiratory: Reports: cough Gastrointestinal/Abdominal: Reports: difficulty swallowing, poor appetite Genitourinary: Reports: no symptoms Neurologic/Psychiatric: Reports: pre-existing deficit Endocrine: Reports: no symptoms Hematologic/Lymphatic: Reports: no symptoms Allergies: Coded Allergies: No Known Allergies (Unverified , 10/17/18) All Systems: reviewed and negative except above Subjective s/p peg. uncomplicated. feeds currently off. no events overnight. Objective Last 24 Hour Vital Signs Date Time Temp Pulse Resp B/P (MAP) Pulse Ox O2 Delivery O2 Flow Rate FiO2 10/25/18 04:00 97.9 63 18 120/60 (80) 99 10/25/18 04:00 60 10/25/18 00:00 67 10/25/18 00:00 97.3 68 18 101/60 (74) 97 10/24/18 21:00 Room Air 10/24/18 20:00 58 10/24/18 20:00 98.1 73 20 110/60 (77) 98 10/24/18 16:00 97.6 74 18 111/63 (79) 96 10/24/18 16:00 81 10/24/18 13:20 65 20 100 10/24/18 13:19 67 18 100 10/24/18 12:00 67 10/24/18 12:00 97.9 68 18 126/70 (88) 96 10/24/18 09:05 97.2 70 23 127/73 98 Room Air 10/24/18 09:00 Room Air 10/24/18 09:00 69 25 106/65 96 Room Air 10/24/18 08:50 65 23 125/67 100 Nasal Cannula 3 10/24/18 08:45 70 24 109/64 100 Nasal Cannula 3 10/24/18 08:41 97.3 67 22 113/64 100 Nasal Cannula 3 10/24/18 08:00 57 Intake and Output 10/24/18 10/25/18 19:00 07:00 Intake Total 450 ml Output Total 1600 ml 1000 ml Balance -1150 ml -1000 ml IV Total 450 ml Output Urine Total 1600 ml 1000 ml # Bowel Movements 1 1 Laboratory Tests 10/25/18 06:12: White Blood Count 7.8, Red Blood Count 3.56L, Hemoglobin 12.1, Hematocrit 37.1, Mean Corpuscular Volume 104H, Mean Corpuscular Hemoglobin 34.1H, Mean Corpuscular Hemoglobin Concent 32.6, Red Cell Distribution Width 10.8L, Platelet Count 500H, Mean Platelet Volume 4.6L, Neutrophils (%) (Auto) 68.5, Lymphocytes (%) (Auto) 21.2, Monocytes (%) (Auto) 8.1, Eosinophils (%) (Auto) 1.2, Basophils (%) (Auto) 1.0 Height (Feet): 5 Height (Inches): 1.00 Weight (Pounds): 114 Objective General Appearance: WD/WN, resting Neck: supple Cardiovascular: normal rate Respiratory/Chest: chest wall non-tender, lungs clear, normal breath sounds, no respiratory distress, no accessory muscle use Abdomen: normal bowel sounds, non tender, soft, no organomegaly, no mass Edema: no edema noted Arm (L), no edema noted Arm (R), no edema noted Leg (L), no edema noted Leg (R), no edema noted Pedal (L), no edema noted Pedal (R), no edema noted Generalized Neurologic: disoriented, aphasia Marc Rosas MD Oct 25, 2018 07:55
[2018-10-25 08:00] VITALS: BP 112/84
[2018-10-25] MEDS: Heparin 5000 units/ml inj SUBQ SCH ×2 (09:23→21:23)
[2018-10-25 12:00] VITALS: BP 97/52
[2018-10-25] MEDS: Cefepime HCl 1 GM in D5W 55 ML IVPB SCH (15:12)
[2018-10-25 16:00] VITALS: BP 129/71
--- NOTE | 2018-10-25 17:30 | NUR ---
NURSE NOTES:Dr. Vargas examined patient's surgical site and ordered to begin NG tube feeding with Glucerna 1.2 at rate 20mls/hr and increase each shift by 10, goal is 50mls/hr. Order acknowledged and carried out.
--- NOTE | 2018-10-25 19:10 | NUR ---
HAND-OFF: Report given to Steve RN. Plan of care endorsed.
--- NOTE | 2018-10-25 19:11 | NUR ---
NURSE NOTES: Received patient awake, lying in semi lopez's; resting comfortably. A/O x 1. Primarily Khmer speaking. No signs of pain noted. No signs of acute cardiorespiratory distress noted. Checked IV site intact and flushed. With G tube intact, patent, and on Glucerna 1.2 @ 20cc/hr and tolerating well. With bilateral wrist restraints. No signs of discoloration noted on bilateral upper extremities. With Oshea catheter draining well to gravity. Bed at lowest position, brakes on, siderails x3. Call light within reach. Comfort care provided. Will continue to monitor.
--- NOTE | 2018-10-25 19:37 | General Progress Note ---
Assessment/Plan Status: stable, progressing, not improved Assessment/Plan: Assessment - Dementia - Elevated MCV with normal B12/Folate/TSH - ? etiology - hypoglycemia - Delirium - Failed swallow study - s/p PEG Recommendations - Begin GT feeds - Elevate HOB - can consider future heme eval - d/c planning Subjective Allergies: Coded Allergies: No Known Allergies (Unverified , 10/17/18) Subjective Above noted POD #1 after PEG uneventful evening d/w RN Objective Last 24 Hour Vital Signs Date Time Temp Pulse Resp B/P (MAP) Pulse Ox O2 Delivery O2 Flow Rate FiO2 10/25/18 16:00 97.2 72 18 129/71 (90) 97 10/25/18 16:00 68 10/25/18 12:00 59 10/25/18 12:00 97.7 69 20 97/52 (67) 94 10/25/18 08:24 Room Air 10/25/18 08:00 68 10/25/18 08:00 97.7 70 18 112/84 (93) 94 10/25/18 04:00 97.9 63 18 120/60 (80) 99 10/25/18 04:00 60 10/25/18 00:00 67 10/25/18 00:00 97.3 68 18 101/60 (74) 97 10/24/18 21:00 Room Air 10/24/18 20:00 58 10/24/18 20:00 98.1 73 20 110/60 (77) 98 Intake and Output 10/24/18 10/25/18 19:00 07:00 Intake Total 450 ml Output Total 1600 ml 1000 ml Balance -1150 ml -1000 ml IV Total 450 ml Output Urine Total 1600 ml 1000 ml # Bowel Movements 1 1 Laboratory Tests 10/25/18 06:12: White Blood Count 7.8, Red Blood Count 3.56L, Hemoglobin 12.1, Hematocrit 37.1, Mean Corpuscular Volume 104H, Mean Corpuscular Hemoglobin 34.1H, Mean Corpuscular Hemoglobin Concent 32.6, Red Cell Distribution Width 10.8L, Platelet Count 500H, Mean Platelet Volume 4.6L, Neutrophils (%) (Auto) 68.5, Lymphocytes (%) (Auto) 21.2, Monocytes (%) (Auto) 8.1, Eosinophils (%) (Auto) 1.2, Basophils (%) (Auto) 1.0 Height (Feet): 5 Height (Inches): 1.00 Weight (Pounds): 114 Objective Thin woman NCAT supple CTA RRR abd soft, (+) GT no edema OBS Edmond Vargas MD Oct 25, 2018 19:37
[2018-10-25 20:00] VITALS: BP 132/62
--- NOTE | 2018-10-25 22:15 | Operative Note - Dictated ---
DATE OF OPERATION: 10/24/2018 GASTROENTEROLOGY PROCEDURE REPORT PROCEDURE: Upper gastrointestinal endoscopy with gastrostomy tube placement. SURGEON: Edmond Vargas M.D. ANESTHESIA: Please see the separate anesthesiologist notes for details. PRE-ENDOSCOPIC DIAGNOSES: Dysphagia and malnutrition. POST-ENDOSCOPIC DIAGNOSIS: Status post gastrostomy tube placement. DESCRIPTION OF PROCEDURE: The procedure, its risks, indications, alternatives, and possible complications including, but not limited to bleeding, infection, perforation, , and anesthesia complications were explained to the patient's family and informed consent was obtained. The patient was then sedated in the supine position and a diagnostic upper endoscope was introduced through the oropharynx and advanced to the duodenum without difficulty. The endoscope was then gradually withdrawn and the mucosa examined carefully. Examination of the upper gastrointestinal mucosa revealed no significant abnormalities. The location for placement of the gastrostomy tube was identified by palpation and transillumination techniques. The outside skin was sterilely prepared, anesthetized, and then incised. The trocar needle was used to get access into the gastric lumen. The guidewire was passed through the trocar needle into the gastric cavity and the needle was removed. However, the wire inadvertently fell out of the stomach and the plastic trocar catheter set was no longer in the stomach. The trocar was therefore removed and a second trocar stab was made through the same stab incision into the stomach and a guidewire was passed through it grasped via endoscope and brought out through the mouth attached to the gastrostomy device, which was placed in the position using standard pull technique. Position was verified endoscopically. The endoscope was removed. Dressings were applied. Abdominal binder was applied. The patient was sent to recovery in good condition. COMPLICATIONS: None. RECOMMENDATIONS: 1. Observe overnight. 2. Begin tube feedings tomorrow. Edmond Vargas M.D. DR: LOUIS JOB#: [id number] CC: SMITH
[2018-10-26] VITALS: BP 103/67
--- NOTE | 2018-10-26 00:39 | NUR ---
NURSE NOTES: Patient is resting throughout the night. No significant change of condition noted. Will continue to monitor.
[2018-10-26 04:00] VITALS: BP 109/65
[2018-10-26 04:42] LABS: BASOPHILS % (AUTO) 1.3 % (0.0-2.0); EOSINOPHILS % (AUTO) 1.4 % (0.0-3.0); LYMPHOCYTES % (AUTO) 16.1 % (20.0-45.0); MEAN CORPUSCULAR VOLUME 103 FL (80-99); MONOCYTES % (AUTO) 6.1 % (1.0-10.0); NEUTROPHILS % (AUTO) 75.2 % (45.0-75.0); PLATELET COUNT 538 K/UL (150-450); RED CELL DISTRIBUTION WIDTH 10.7 % (11.6-14.8); WHITE BLOOD COUNT 9.1 K/UL (4.8-10.8)
[2018-10-26] MEDS: Vancomycin 750mg/NS 275ml IVPB SCH ×2 (04:52)
[2018-10-26 05:01] LABS: ALANINE AMINOTRANSFERASE 28 U/L (12-78); ALBUMIN 2.2 G/DL (3.4-5.0); ALBUMIN/GLOBULIN RATIO 0.5 (1.0-2.7); ALKALINE PHOSPHATASE 87 U/L (46-116); ANION GAP 7 mmol/L (5-15); ASPARTATE AMINO TRANSFERASE 32 U/L (15-37); BILIRUBIN,TOTAL 0.4 MG/DL (0.2-1.0); BLOOD UREA NITROGEN 12 mg/dL (7-18); CALCIUM 9.1 MG/DL (8.5-10.1); CARBON DIOXIDE 28 MMOL/L (21-32); CHLORIDE 105 MMOL/L (98-107); CREATININE 0.7 MG/DL (0.55-1.30); POTASSIUM 3.7 MMOL/L (3.5-5.1); SODIUM 139 MMOL/L (136-145)
[2018-10-26] MEDS: NovoLOG Insulin Flexpen SUBQ SCH ×3 (05:06→17:26)
--- NOTE | 2018-10-26 05:26 | NUR ---
NURSE NOTES: Per Salma obrien pharmacist, hold vancomycin dose for 0500. Noted and carried out.
--- NOTE | 2018-10-26 07:10 | NUR ---
HAND-OFF: Report given to JOSEPH Mcfarlane. Plan of care endorsed.
--- NOTE | 2018-10-26 07:29 | NUR ---
NURSE NOTES: Received report from Steve RN. The patient is resting on the bed without acute distress or shortness of breath. The patient's bed in the lowest position, call light in reach, and fall and aspiration precaution reinforced. G-tube intact and patent and running Glucerna 1.2 @40mL without s/s of shortness of breath or aspiration. IV site on L hand 22G is intact and patent and running D5 1/2NS @100mL/hr. The patient has soft restraints and the circulation is intact. Will continue plan of care.
[2018-10-26 08:00] VITALS: BP 108/58
[2018-10-26] MEDS: Heparin 5000 units/ml inj SUBQ SCH ×2 (09:25→20:54)
[2018-10-26] MEDS: D5 1/2NS 1,000 ML IV SCH ×2 (09:25→20:52)
[2018-10-26 12:00] VITALS: BP 100/52
[2018-10-26] MEDS ORDERED: Acetaminophen 650mg/20.3ml GT PRN (12:00)
--- NOTE | 2018-10-26 12:00 | NUR ---
NURSE NOTES: The patient is stable without acute distress or shortness of breath. The patient is on tube feeding with residual of 10mL. Will continue plan of care.
--- NOTE | 2018-10-26 12:18 | General Progress Note ---
Assessment/Plan Problem List: (1) Altered level of consciousness ICD Codes: R40.4 - Transient alteration of awareness SNOMED: 8657531 (2) Hypoglycemia ICD Codes: E16.2 - Hypoglycemia, unspecified SNOMED: 836422765 (3) Encephalopathy ICD Codes: G93.40 - Encephalopathy, unspecified SNOMED: 74696500 Status: stable, progressing, not improved Assessment/Plan: gt feeds per gi dc ivf iv abx dc planning to snf soon Subjective ROS Limited/Unobtainable: No Constitutional: Reports: malaise, weakness HEENT: Reports: no symptoms Cardiovascular: Reports: no symptoms Respiratory: Reports: no symptoms Gastrointestinal/Abdominal: Reports: difficulty swallowing Genitourinary: Reports: no symptoms Neurologic/Psychiatric: Reports: no symptoms Endocrine: Reports: no symptoms Hematologic/Lymphatic: Reports: no symptoms Allergies: Coded Allergies: No Known Allergies (Unverified , 10/17/18) All Systems: reviewed and negative except above Subjective no events. w/o complaints, resting. no fever or chills. tolerating feeds Objective Last 24 Hour Vital Signs Date Time Temp Pulse Resp B/P (MAP) Pulse Ox O2 Delivery O2 Flow Rate FiO2 10/26/18 12:00 97.1 74 18 100/52 (68) 95 10/26/18 09:00 Room Air 10/26/18 08:00 60 10/26/18 08:00 97.3 65 18 108/58 (75) 95 10/26/18 04:00 65 10/26/18 04:00 97.0 66 18 109/65 (80) 98 10/26/18 00:00 98.3 64 16 103/67 (79) 97 10/26/18 00:00 58 10/25/18 21:00 Room Air 10/25/18 20:00 98.0 82 16 132/62 (85) 98 10/25/18 20:00 70 10/25/18 16:00 97.2 72 18 129/71 (90) 97 10/25/18 16:00 68 Intake and Output 10/25/18 10/26/18 19:00 07:00 Intake Total 140 ml 1525 ml Output Total 1200 ml 1100 ml Balance -1060 ml 425 ml Free Water 40 ml IV Total 100 ml 1115 ml Tube Feeding 40 ml 370 ml Output Urine Total 1200 ml 1100 ml # Bowel Movements 1 1 Laboratory Tests 10/26/18 04:20: White Blood Count 9.1, Red Blood Count 3.20L, Hemoglobin 11.0L, Hematocrit 33.0L , Mean Corpuscular Volume 103H, Mean Corpuscular Hemoglobin 34.3H, Mean Corpuscular Hemoglobin Concent 33.3, Red Cell Distribution Width 10.7L, Platelet Count 538H, Mean Platelet Volume 4.4L, Neutrophils (%) (Auto) 75.2H, Lymphocytes (%) (Auto) 16.1L, Monocytes (%) (Auto) 6.1, Eosinophils (%) (Auto) 1.4, Basophils (%) (Auto) 1.3, Sodium Level 139, Potassium Level 3.7, Chloride Level 105, Carbon Dioxide Level 28, Anion Gap 7, Blood Urea Nitrogen 12, Creatinine 0.7, Estimat Glomerular Filtration Rate , Glucose Level 117H, Calcium Level 9.1, Total Bilirubin 0.4, Aspartate Amino Transf (AST/SGOT) 32, Alanine Aminotransferase (ALT/SGPT) 28, Alkaline Phosphatase 87, Total Protein 7.0, Albumin 2.2L, Globulin 4.8, Albumin/Globulin Ratio 0.5L, Vancomycin Level Trough 22.0H Height (Feet): 5 Height (Inches): 1.00 Weight (Pounds): 96 Objective General Appearance: WD/WN, resting Neck: supple Cardiovascular: normal rate Respiratory/Chest: chest wall non-tender, lungs clear, normal breath sounds, no respiratory distress, no accessory muscle use Abdomen: normal bowel sounds, non tender, soft, no organomegaly, no mass Edema: no edema noted Arm (L), no edema noted Arm (R), no edema noted Leg (L), no edema noted Leg (R), no edema noted Pedal (L), no edema noted Pedal (R), no edema noted Generalized Neurologic: disoriented, aphasia Marc Rosas MD Oct 26, 2018 12:18
[2018-10-26] MEDS: Lactulose 20gm/30ml UDC GT SCH ×2 (12:28→17:24)
--- NOTE | 2018-10-26 13:02 | NUR ---
CASE MANAGEMENT:REVIEW 10/26/18 SI: POD #2...S/P PEG 97.1 4 18 100/52 95% ON RA IS: IV CEFEPIME Q24 IVF@100/HR LACTULOSE GT TID HEPARIN SQ Q12 : TELEMETRY STATUS DCP: FROM [facility]
[2018-10-26] MEDS: Cefepime HCl 1 GM in D5W 55 ML IVPB SCH (15:00)
[2018-10-26 16:00] VITALS: BP 108/61
--- NOTE | 2018-10-26 16:12 | General Progress Note ---
Assessment/Plan Status: stable, progressing, not improved Assessment/Plan: Assessment - Dementia - Elevated MCV with normal B12/Folate/TSH - ? etiology - hypoglycemia - Delirium - Failed swallow study - s/p PEG Recommendations - Continue GT feeds - Elevate HOB - can consider future heme eval - d/c planning Subjective Allergies: Coded Allergies: No Known Allergies (Unverified , 10/17/18) Subjective Above noted POD #2 after PEG uneventful evening d/w RN tolerating TF Objective Last 24 Hour Vital Signs Date Time Temp Pulse Resp B/P (MAP) Pulse Ox O2 Delivery O2 Flow Rate FiO2 10/26/18 12:00 97.1 74 18 100/52 (68) 95 10/26/18 12:00 68 10/26/18 09:00 Room Air 10/26/18 08:00 60 10/26/18 08:00 97.3 65 18 108/58 (75) 95 10/26/18 04:00 65 10/26/18 04:00 97.0 66 18 109/65 (80) 98 10/26/18 00:00 98.3 64 16 103/67 (79) 97 10/26/18 00:00 58 10/25/18 21:00 Room Air 10/25/18 20:00 98.0 82 16 132/62 (85) 98 10/25/18 20:00 70 Intake and Output 10/25/18 10/26/18 19:00 07:00 Intake Total 140 ml 1525 ml Output Total 1200 ml 1100 ml Balance -1060 ml 425 ml Free Water 40 ml IV Total 100 ml 1115 ml Tube Feeding 40 ml 370 ml Output Urine Total 1200 ml 1100 ml # Bowel Movements 1 1 Laboratory Tests 10/26/18 04:20: White Blood Count 9.1, Red Blood Count 3.20L, Hemoglobin 11.0L, Hematocrit 33.0L , Mean Corpuscular Volume 103H, Mean Corpuscular Hemoglobin 34.3H, Mean Corpuscular Hemoglobin Concent 33.3, Red Cell Distribution Width 10.7L, Platelet Count 538H, Mean Platelet Volume 4.4L, Neutrophils (%) (Auto) 75.2H, Lymphocytes (%) (Auto) 16.1L, Monocytes (%) (Auto) 6.1, Eosinophils (%) (Auto) 1.4, Basophils (%) (Auto) 1.3, Sodium Level 139, Potassium Level 3.7, Chloride Level 105, Carbon Dioxide Level 28, Anion Gap 7, Blood Urea Nitrogen 12, Creatinine 0.7, Estimat Glomerular Filtration Rate , Glucose Level 117H, Calcium Level 9.1, Total Bilirubin 0.4, Aspartate Amino Transf (AST/SGOT) 32, Alanine Aminotransferase (ALT/SGPT) 28, Alkaline Phosphatase 87, Total Protein 7.0, Albumin 2.2L, Globulin 4.8, Albumin/Globulin Ratio 0.5L, Vancomycin Level Trough 22.0H Height (Feet): 5 Height (Inches): 1.00 Weight (Pounds): 96 Objective Thin woman NCAT supple CTA RRR abd soft, (+) GT no edema OBS Edmond Vargas MD Oct 26, 2018 16:11
--- NOTE | 2018-10-26 19:15 | NUR ---
NURSE NOTES: Received patient from JOSEPH Mcfarlane, patient in stable condition, resting comfortably in bed, AOx1, able to make needs known to a degree, GT stoma intact, tube patent, IV left G22, asymptomatic, patent, intact, bed low&locked, call light within reach, will continue to monitor and reassess.
--- NOTE | 2018-10-26 19:20 | NUR ---
HAND-OFF: Report given to JOSEPH Gallegos. The patient is resting on the bed without acute distress or shortness of breath. The patient's bed in the lowest position, call light in reach, and fall and aspiration precaution reinforced. The patient had a BM today. IV site is intact and patent. Endorsed plan of care.
[2018-10-26 20:00] VITALS: BP 115/62
[2018-10-27] VITALS: BP 105/58
--- NOTE | 2018-10-27 00:01 | Progress Note ---
DATE: 10/26/2018 CARDIOLOGY PROGRESS NOTE SUBJECTIVE: Discharge planning in progress. The patient tolerates feedings. Vitals are stable at low normal range of blood pressure which appears to be chronic. PHYSICAL EXAMINATION: LUNGS: Clear. CARDIAC: Regular. No murmur. ABDOMEN: Soft. G-tube site intact EXTREMITIES: There is no edema. NEUROLOGIC: The patient remains aphasic. IMPRESSION: 1. Chronic encephalopathy. 2. Dysphagia status post G-tube. 3. , recovered. 4. Baseline blood pressure parameters at this time. 5. Stable from cardiovascular standpoint for custodial facility. Roque Cavazos M.D. DR: Arvin JOB#: [id number] CC:
--- NOTE | 2018-10-27 00:01 | Progress Note ---
DATE: 10/24/2018 CARDIOLOGY PROGRESS NOTE. Late entry SUBJECTIVE: The patient is to undergo G-tube placement later today, still has unstable intake. PHYSICAL EXAMINATION: VITAL SIGNS: Blood pressure 127/73, pulse 70, respiratory rate 23, afebrile. LUNGS: Clear. CARDIAC: Regular. ABDOMEN: Soft, nontender. EXTREMITIES: No edema. DIAGNOSTIC DATA: Monitored rhythm sinus and sinus bradycardia. IMPRESSION: 1. Stable from cardiovascular standpoint for anesthesia and G-tube placement. 2. Continue IV fluids with dextrose and monitor glucose parameters closely. Roque Cavazos M.D. DR: Arvin JOB#: [id number] CC:
--- NOTE | 2018-10-27 00:15 | Progress Note ---
DATE: 10/23/2018 CARDIOLOGY PROGRESS NOTE SUBJECTIVE: The patient had an EEG performed that revealed no seizure activity. She remains with aspiration risk and is tolerating nutrition by NG tube only. Monitored rhythm sinus. OBJECTIVE: VITAL SIGNS: Blood pressure 107/50, pulse 72, respirations 21. GENERAL: Withdrawn and confused. LUNGS: Bilateral diminished breath sounds. CARDIAC: Regular rhythm and rate. Normal S1, S2. ABDOMEN: Soft. EXTREMITIES: No edema. LABORATORY DATA: White count 8.9 and hemoglobin 10.2. Sodium 139, potassium 4.5, bicarb 29, BUN 22, creatinine 0.7. Albumin 2. IMPRESSION: 1. Toxic and metabolic encephalopathies. 2. Cerebrovascular disease with dementia. 3. Severe protein-calorie malnutrition. 4. Dysphagia. 5. Rehydrated with IV fluids. 6. Stabilize blood pressure parameters. PLAN: 1. Possible feeding tube to be placed. 2. Continue maintenance hydration with IV fluids. 3. DVT prophylaxis. 4. Adjust dextrose infusion based on metabolic parameters and glucose monitoring. Roque Cavazos M.D. DR: SUZY JOB#: [id number] CC:
--- NOTE | 2018-10-27 00:30 | Progress Note ---
DATE: 10/25/2018 CARDIOLOGY PROGRESS NOTE SUBJECTIVE: G-tube was placed yesterday without complications. G-tube feeding is being initiated today. No events overnight. The patient remains on dextrose infusion. Glucose parameters have stabilized. OBJECTIVE: VITAL SIGNS: Earlier blood pressure 97/52, pulse 69, respirations 20. Now blood pressure 132/62, pulse 82, respirations 16. LUNGS: Clear. CARDIAC: Regular. ABDOMEN: Soft. G-tube intact. No guarding or rebound. EXTREMITIES: Without edema. LABORATORY DATA: Chemistry panel within normal limits. Albumin 2.2. White count 9.1 and hemoglobin 11. IMPRESSION: 1. Hypoglycemia, recovered. 2. Metabolic and toxic encephalopathies, improved. 3. 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 4. Dysphagia, status post G-tube. 5. Hypotensive episode, resolved likely due to hypovolemia. PLAN: 1. Initiate feeds. 2. Continue hydration until nutrition rate at maximal dose. 3. Monitor glucose parameters. 4. Monitor blood pressure parameters. Roque Cavazos M.D. DR: SUZY JOB#: [id number] CC:
[2018-10-27 04:00] VITALS: BP 109/63
[2018-10-27] MEDS: NovoLOG Insulin Flexpen SUBQ SCH ×3 (06:22→12:00)
[2018-10-27] MEDS: D5 1/2NS 1,000 ML IV SCH (06:35)
[2018-10-27 08:00] VITALS: BP 104/54
[2018-10-27] MEDS: Lactulose 20gm/30ml UDC GT SCH (09:00)
[2018-10-27] MEDS: Heparin 5000 units/ml inj SUBQ SCH (09:07)
--- NOTE | 2018-10-27 09:15 | NUR ---
[facility]CHAR[facility]ANN[facility]IN[facility] T: [phone] AWAIT ROOM ASSIGNMENT AND DISCHARGE ORDER Addendum: 10/27/18 at 1041 by SIRENA GUZMAN LVN LVN PATIENT HAS BEEN ACCEPTED BACK TO [facility] ROOM 63B Addendum: 10/28/18 at 0919 by TREVOR SHEARER CM SKILLED
[2018-10-27 12:00] VITALS: BP 100/50
--- NOTE | 2018-10-27 12:03 | Cardiology Report ---
APPROVED REPORT EKG Measurement Heart [id number] Normal sinus rhythm Low voltage QRS Borderline ECG
[2018-10-27] MEDS ORDERED: Lactulose 20gm/30ml UDC GT SCH (13:00)
--- NOTE | 2018-10-27 16:00 | NUR ---
Discharge: Patient is being discharged from medical care. Report given to Trang RUIZ @[facility] and [employer] personnels. Awake and oriented x1 and able to follow the simple direction. After care instructions, including referral to community resources were given to the patient's son due to the patient's mental limitation. Patient's son verbalized understanding of After care instructions; at this time patient does not request medications, equipment. She will discharge to [facility]. Patient unable to sign patient consent in the medical record for patient destination upon discharge. All medical devices such as IV, library monitor and ID band were removed. Patient picked by [facility] ambulance personnels via gurney with all personal belongings.
[2018-10-27] MEDS ORDERED: TYLENOL325 MG GT (16:41)
[2018-10-27] MEDS ORDERED: DEXTROSE 50%-WA50 ML IV (16:43)
[2018-10-27] MEDS ORDERED: DONEPEZIL HCL10 M2 GT (16:44)
[2018-10-27] MEDS ORDERED: FOLIC ACID1 MG GT (16:45)
--- NOTE | 2018-10-27 16:45 | Discharge Summary ---
DATE OF ADMISSION: 10/17/2018 DATE OF DISCHARGE: 10/27/2018 ADMISSION DIAGNOSES: 1. Hypoglycemia. 2. Altered mental status. 3. Dysphagia. 4. Encephalopathy. 5. Shock. DISCHARGE DIAGNOSES: 1. Hypoglycemia. 2. Altered mental status. 3. Dysphagia. 4. Encephalopathy. 5. Shock. HOSPITAL COURSE: The patient is an 87-year-old female was admitted with complaints of hypoglycemia and altered mental status. The patient apparently has not been eating well. She was clinically dehydrated and hypotensive due to volume depletion. She was admitted. She had an elevated white count, was treated initially for sepsis. She received IV hydration. The patient had multiple swallow evaluations, which she failed. After discussion with family members, they agreed to placement of a G-tube. The patient underwent placement of the G-tube, was resumed on feedings. On discharge, she was doing well. She will be discharged back to care home facility on G-tube feeds. DISCHARGE MEDICATIONS: Please see discharge medication list for discharge medications. DIET: G-tube feeding. ACTIVITY: Ad-radha. FOLLOWUP: The patient to be followed by her PMD in one to two days at care home facility. Marc Rosas M.D. DR: JESSICA JOB#: [id number] CC:
[2018-10-27] MEDS ORDERED: HEPARIN SO5000 UNIT2 SUBQ (16:46)
[2018-10-27] MEDS ORDERED: NOVOLOG100 UNITS1 SQ (16:47)
[2018-10-27] MEDS ORDERED: LACTULOSE20 GM/301 GT (16:48)
[2018-10-27] MEDS ORDERED: SYNTHROID25 MCG GT (16:49)
--- NOTE | 2018-10-27 19:39 | General Progress Note ---
Assessment/Plan Status: stable, progressing, not improved Assessment/Plan: Assessment - Dementia - Elevated MCV with normal B12/Folate/TSH - ? etiology - hypoglycemia - Delirium - Failed swallow study - s/p PEG Recommendations - Continue GT feeds - Elevate HOB - can consider future heme eval - d/c planning Subjective Allergies: Coded Allergies: No Known Allergies (Unverified , 10/17/18) Subjective Above noted POD #3 after PEG uneventful evening tolerating TF Objective Last 24 Hour Vital Signs Date Time Temp Pulse Resp B/P (MAP) Pulse Ox O2 Delivery O2 Flow Rate FiO2 10/27/18 12:00 98.4 80 18 100/50 (67) 100 10/27/18 12:00 66 10/27/18 09:00 Room Air 10/27/18 08:00 67 10/27/18 08:00 98.7 76 18 104/54 (71) 99 10/27/18 04:00 97.7 82 19 109/63 (78) 97 10/27/18 04:00 80 10/27/18 00:00 72 10/27/18 00:00 99.1 71 19 105/58 (74) 97 10/26/18 21:00 Room Air 10/26/18 21:00 Room Air 10/26/18 20:00 80 10/26/18 20:00 97.2 78 18 115/62 (79) 95 Intake and Output 10/26/18 10/27/18 19:00 07:00 Intake Total 850 ml 1153 ml Output Total 900 ml 1300 ml Balance -50 ml -147 ml Free Water 300 ml 240 ml IV Total 413 ml Tube Feeding 550 ml 500 ml Output Urine Total 900 ml 1300 ml # Bowel Movements 1 Height (Feet): 5 Height (Inches): 1.00 Weight (Pounds): 96 Objective Thin woman NCAT supple CTA RRR abd soft, (+) GT no edema OBS Edmond Vargas MD Oct 27, 2018 19:39
[2018-10-27] MEDS ORDERED: Donepezil 10mg tab GT SCH (21:00)
--- NOTE | 2018-10-27 23:00 | Progress Note ---
DATE: 10/27/2018 CARDIOLOGY PROGRESS NOTE SUBJECTIVE: Status post G-tube, tolerating feedings. No nausea or vomiting, glucose low normal range. PHYSICAL EXAMINATION: LUNGS: Bilateral breath sounds. HEART: Regular rhythm and rate. Normal S1 and S2. ABDOMEN: Soft. G-tube site intact. EXTREMITIES: No edema. LABORATORY DATA: Most recent labs noted. IMPRESSION: 1. Hypoglycemia, resolved. 2. Dysphagia status post G-tube. 3. Cerebrovascular disease with chronic encephalopathy. 4. Dementia. PLAN: 1. Stable from cardiovascular standpoint for [facility] facility. 2. Discharge medication regimen reviewed and reconciled. 3. The patient is off antimicrobials and IV fluids. 4. Central venous access can be removed. Roque Cavazos M.D. DR: Arvin JOB#: [id number] CC:
== END 2018-10-27 16:05 | DRG 871 ==
LOC: EDBD 02:33 → EMR 03:13 → 2E 03:47 → EDBEDREQ 04:24 → 2E 04:43
PROC: 0DH63UZ Insertion of Feeding Device into Stomach, Percutaneous Approach (ICD-10-PCS; principal; 2018-10-24 08:10)
DX: A41.9 Sepsis, unspecified organism (principal); G93.41 Metabolic encephalopathy; E43 Unspecified severe protein-calorie malnutrition; R57.1 Hypovolemic shock; N17.9 Acute kidney failure, unspecified; Z68.1 Body mass index [BMI] 19.9 or less, adult; E16.2 Hypoglycemia, unspecified; Z68.21 Body mass index [BMI] 21.0-21.9, adult; R41.82 Altered mental status, unspecified; R13.10 Dysphagia, unspecified; F01.50 Vascular dementia, unspecified severity, without behavioral disturbance, psychotic disturbance, mood disturbance, and anxiety; I25.10 Atherosclerotic heart disease of native coronary artery without angina pectoris; E86.0 Dehydration; N18.9 Chronic kidney disease, unspecified
CPT/HCPCS: 36415; 70450; 70551; 71045; 74018; 80053; 80202; 81001; 82140; 82533; 82607; 82746; 82947; 82962; 83605; 83735; 84443; 84484; 85007; 85025; 85610; 85651; 85730; 87040; 87081; 87086; 87181; 93005; 94003; 94150; 95819; 96360; 99285; J1815; J8499